=== PATIENT | female | born 1970 | race African-American/Black ===

== ENCOUNTER 2019-08-29 12:35 | Outpatient (CLI) | payer BC, SELFPAY ==
--- NOTE | ~2019-08-29 | MM_ITS ---
EXAMINATION: MM screening martha BI w rg HISTORY: Screening mammogram TECHNIQUE: Craniocaudal and mediolateral oblique 3-D tomosynthesis images were obtained and synthetic 2-D images were generated. CAD analysis was submitted and interpreted. COMPARISON: 08/10/2018, 09/28/2016, 09/02/2015 bilateral digital screening mammogram examinations BREAST PARENCHYMAL COMPOSITION: The breasts are heterogeneously dense, which may obscure small masses . FINDINGS: There is no evidence of suspicious mass, calcification, or architectural distortion to sugg est malignancy in either breast. There has been no suspicious interval change. IMPRESSION: 1. No mammographic evidence of malignancy. 2. Recommend routine screening mammography in one year. BI-RADS Category 1: Negative Reviewed, dictated and finalized at location A.
== END 2019-08-29 12:36 | disposition home or self-care (01) ==
LOC: ANHIMG 12:45
PROVIDERS: PCP Physician Assistant; Visit Provider Physician Assistant
DX: Z12.31 Encounter for screening mammogram for malignant neoplasm of breast (principal)
CPT/HCPCS: 77063; 77067

== ENCOUNTER 2019-11-14 19:24 | Emergency (ER) | payer BC, SELFPAY ==
--- NOTE | ~2019-11-14 | CT_ITS ---
EXAMINATION: CT brain wo con EXAM DATE: 11/14/2019 20:58 INDICATION: Blurred vision. TECHNIQUE: Spiral CT of the head was performed without contrast. Axial, coronal and sagittal images were reviewed. The dose-length product (DLP) for this examination was 681.00 mGy-cm. The exposure w as tailored according to patient size, and iterative reconstruction (ASIR) was used as additional dos e reduction technique. There is no prior study for comparison. FINDINGS: There is no acute intraparenchymal hemorrhage. No evidence of intraparenchymal brain mass lesion. No evidence of acute infarction. There is no mass effect or midline shift. The ventricles are normal in size. There are no extra-axial collections. There are no acute calvarial fractures. T he orbits are unremarkable. Soft tissue is unremarkable. The visualized sinuses and mastoid air hair ls are well aerated. IMPRESSION: 1. Normal head CT examination. Reviewed, dictated and finalized at location A.
[2019-11-14 19:26] VITALS: BP 132/95; PULSE 109; RESP 19; TEMP 36.7; O2SAT 100
[2019-11-14 19:32] LABS: Glucose Point of Care 117 (65-105)
[2019-11-14 19:58] LABS: Add Urine Microscopic? YES; Appearance Urine Cloudy (Clear); Bilirubin Urine Negative (Negative); Blood Urine 2+ (Negative); Color Urine Yellow (Yellow); Glucose Urine UA Negative (Negative); Ketones Urine Trace mg/dL (Negative); Leukocyte Esterase Ur Negative LEU/UL (Negative); Mucus Urine Moderate /lpf; Nitrate Urine Negative (Negative); Protein Urine 1+ mg/dL (Negative); Specific Grav Ur 1.028 (1.001-1.035); Squamous Epithelial Cell Urine Many /hpf (Few)
--- NOTE | 2019-11-14 20:24 | ED.GENADULT ---
HPI - General Adult General Chief complaint: Eye Problems Stated complaint: blurry vision Time Seen by Provider: 11/14/19 20:15 Source: patient History of Present Illness HPI narrative: Patient is a 49 y/o female complaining of moderate blurred vision for about 1 month. She states that she just had her glasses changed recently. She denies any pain or injury to eyes. There is no alleviating or exacerbating factor. She also has some frequent urination and numbness tingling in hands and feet. She denies any headache, weakness in arms or legs. She is able to walk without difficulty. Related Data Allergies Allergy/AdvReac Type Severity Reaction Status Date / Time latex Allergy Mild Itching Verified 11/14/19 20:48 Review of Systems Constitutional: Constitutional: Denies chills, Denies fever(s), Denies headache(s) and Denies weakness Eyes: Eyes: Reports blurry vision ENT: Denies headache(s) and Denies neck pain Cardiovascular: Cardiovascular: Denies chest pain and Denies dyspnea Respiratory: Respiratory: Denies cough and Denies dyspnea Gastrointestinal: Gastrointestinal: Denies abdominal pain, Denies diarrhea, Denies nausea and Denies vomiting Genitourinary: Genitourinary: Denies hematuria and Denies dysuria Musculoskeletal: Musculoskeletal: Denies back pain and Denies neck pain Neurologic: Denies headache(s) and Denies weakness Endocrine: Endocrine: Reports fatigue and Reports polyuria [facility] Family History Family History Mother Family history of malignant neoplasm of esophagus Social History Social History Second hand tobacco smoke exposure: Yes Alcohol intake: current Gender identity (if verbalized by the patient): Female Exam Const: General: no acute distress and well developed Orientation/consciousness: oriented to person, oriented to place, oriented to time and patient oriented x3 HENMT: Head: normocephalic Ears: external ears normal General nose exam: Normal external nose present Eyes: General: appearance normal, both eyes and all related structures Conjunctivae: conjunctivae normal Neck: Neck: normal visual inspection and full ROM Chest: Chest palpation & inspection: normal inspection of the chest and no tenderness Resp: Effort & Inspection: normal respiratory effort Auscultation: clear to auscultation bilaterally Cardio: Rate: regular rate Rhythm: regular rhythm GI: GI Palp: No abdominal tenderness and Yes Soft to palpation Skin: General skin exam: normal color and turgor normal Neuro: General: oriented to person, oriented to place, oriented to time and patient oriented x3 Cranial nerves: Yes CN's II-XII intact bilaterally Cognition (Neuro): normal cognition Speech: normal speech Motor exam (neuro): 5/5 motor strength present throughout Sensory Exam: normal sensation Coordination: [id number] test normal and [id number] test normal Extrem: General: normal to inspection, full ROM and no pedal edema Psych: Appearance: grossly normal Mental Status: mental status grossly normal Affect: normal affect Course Vital Signs Vital signs: Vital Signs Temperature 36.7 C 11/14/19 19:26 Pulse Rate 109 H 11/14/19 19:26 Respiratory Rate 11/14/19 19:26 Blood Pressure 132/95 H 11/14/19 19:26 Pulse Oximetry 100 11/14/19 19:26 Temperature 36.7 C 11/14/19 19:26 Pulse Rate 109 H 11/14/19 19:26 Respiratory Rate 11/14/19 19:26 Blood Pressure 132/95 H 11/14/19 19:26 Pulse Oximetry 100 11/14/19 19:26 Medical Decision Making Vital Signs Vital Signs: Vital Signs Temperature 36.7 C 11/14/19 19:26 Pulse Rate 109 H 11/14/19 19:26 Respiratory Rate 11/14/19 19:26 Blood Pressure 132/95 H 11/14/19 19:26 Pulse Oximetry 100 11/14/19 19:26 Temperature 36.7 C 11/14/19 19:26 Pulse Rate 109 H 11/14/19 19:26 Respiratory Rate
[2019-11-14 20:42] LABS: Basophils Absolute Auto 0.1 K/mm3 (0.0-0.1); Basophils Percent Auto 1.2 % (0.2-1.2); Eosinophils Absolute Auto 0.3 K/mm3 (0-0.3); Eosinophils Percent Auto 5.5 % (0-4.4); Hematocrit 45.1 % (37.0-47.0); Hemoglobin 15.3 g/dL (12.0-15.0); Immature Granulocyte Absolute 0.01 K/mm3 (0.00-0.031); Immature Granulocyte Percent A 0.2 % (0-0.5); Lymphocytes Absolute Auto 2.98 K/mm3 (0.9-3.2); Lymphocytes Percent Auto 50.9 % (18.3-44.2); Mean Corpuscular HGB Conc 33.9 g/dl (32-36); Mean Corpuscular Volume 97.4 fl (80-100); Mean Platelet Volume 9.4 fl (7.4-10.4); Monocytes Absolute Auto 0.4 K/mm3 (0.1-0.6); Monocytes Percent Auto 7.2 % (2.6-8.5); Neutrophils Absolute Auto 2.1 K/mm3 (1.3-6.7); Platelet Count Result 283 k/mm3 (150-375); Red Blood Count 4.63 M/mm3 (4.2-5.4); Red Cell Distribution Width 12.7 % (11.5-14.5); White Blood Count 5.9 K/mm3 (4.5-10.0)
[2019-11-14 20:55] LABS: Anion Gap 11.6 mmol/L (7-16); Blood Urea Nitrogen 15 mg/dL (7-17); Calcium 9.9 mg/dL (8.4-10.2); Carbon Dioxide 27 mmol/L (22-30); Chloride 104 mmol/L (98-107); Estimated CRCL calculation 71 ml/min; Estimated Glomerular Filt Rate > 60; Glucose 116 mg/dL (65-105); Potassium 3.6 mmol/L (3.4-5.0); Sodium 139 mmol/L (137-145)
[2019-11-14 21:55] VITALS: BP 143/100; PULSE 76; RESP 20; O2SAT 100
== END 2019-11-14 22:10 | disposition home or self-care (01) ==
PROVIDERS: Emergency Medicine; Emergency Provider Emergency Medicine; PCP Physician Assistant
DX: H53.8 Other visual disturbances (principal)
CPT/HCPCS: 36415; 70450; 80048; 81001; 82948; 84443; 85025; 99284; A9270

== ENCOUNTER 2019-12-06 10:49 | Outpatient (CLI) | payer BC, SELFPAY ==
[2019-12-06 12:18] LABS: Free T4 Free Thyroxine 1.12 ng/mL (0.78-2.19)
[2019-12-09 06:48] LABS: Triiodothyronine T3 Free 2.6 pg/mL (2.3-4.2)
== END 2019-12-06 10:50 | disposition home or self-care (01) ==
LOC: ANHLAB 10:51
PROVIDERS: PCP Physician Assistant; Visit Provider Internal Medicine Endocrinology, Diabetes & Metabolism
DX: E03.9 Hypothyroidism, unspecified (principal); E04.9 Nontoxic goiter, unspecified
CPT/HCPCS: 36415; 84439; 84443; 84481

== ENCOUNTER 2020-01-03 10:00 | Outpatient (RCR) | payer OTHER, BC, SELFPAY ==
--- NOTE | 2019-12-14 10:24 | PCPTNOTE ---
Patient did not show up for scheduled appointment this date. Called pt due to no show. She forgot about the appointment. She has her re-eval next week.
--- NOTE | 2019-12-20 12:28 | PTOPEVAL ---
Thank you for referring Cherelle bAreu to [facility] [place].? The patient is scheduled to be seen for therapy? 2 x/week for 4 weeks. Please review, sign, date and return this plan of care CARRILLO. I agree with and certify that the following plan of care is medically necessary. Referring Physician Date Admitting Provider: Attending Provider: Dr. Max Wallace MD Physical Therapy Progress Note *PT Outpatient Evaluation Start: 11/21/19 11:58 Freq: Status: Active Protocol: Document 12/20/19 10:11 EDUARDO (Rec: 12/20/19 11:07 EDUARDO [id number]) Therapy Assessment Status Assessment Status Assessment Status Re-evaluation Outpatient Past Medical History Past Medical History No Past Medical/Surgical History Patient/Family Denies Significant Past Medical/ Surgical History Evaluation Information Problem Diagnosis L ankle sprain Onset October 02 2019 Subjective Information She is wearing the ankle brace Query Text:As Reported By Patient/ when out of bed. States the Family MRI indicate torn ligaments of ankle. She has a f/u with on 12/27/19. Denies numbness and tingling of left foot. She has foot pain with wearing shoes, but is able to don/dof shoes and socks. She tried to power walk, but had increased pain. She tried to preform HEP daily. She is able to perform household mobility without difficulty. She is using a cart at [facility] . Pain Assessment Timing of Pain Assessment Timing of Pain Assessment Re-assessment Pain Scale Pain Scale Used Numeric (1 - 10) Self Report Pain Assessment Left Ankle(s) Reported Pain Level 2 Pain Description Throbbing Pain Frequency Intermittent Lowest Pain Intensity 0 Greatest Pain Intensity 5 Pain Score Pain Score 2: Self Report Lower Extremity Range of Motion Ankle/Foot Range of Motion Right Ankle Dorsiflextion With Knee Extension 0 Range of Motion - Active Ankle Plantarflexion Range of Motion - 60 Active Query Text: Ankle Eversion Range of Motion - Active 20 Ankle Inversion Range of Motion - Active 30 Left Ankle Dorsiflextion With Knee Extension -5 Range of Motion - Active Ankle Plantarflexion Range of Motion - 50 Active Query Text:
--- NOTE | 2019-12-26 11:39 | PCPTNOTE ---
Patient did not show up for scheduled appointment this date.
--- NOTE | 2020-01-08 11:03 | PCPTNOTE ---
Patient did not show up for scheduled appointment this date. Called pt due to no show for therapy. She states her work compensation insurance indicated therapy services are not indicated. Will DC skilled therapy services at this time.
--- NOTE | 2020-01-08 11:08 | PCPTNOTE ---
Admitting Provider: Attending Provider: PHYSICIAN NOT ON STAFF Patient:Cherelle Abreu Date of :1970 Discharge Note Patient has not returned for any further treatments since 01/03/2020, therefore she will be discharged at this time. Patient?s initial visit was on 11/21/2019 12:30 and she had a total of 10 visits. The goals have been partially met at this time. Thank you for referring this patient to [facility]. Please review, sign, date and return this discharge summary CARRILLO. I have been updated about the patient's current status and I agree with discharge from the above service at this time. Referring Physician Date
== END 2020-01-08 13:12 | disposition home or self-care (01) ==
LOC: ANHPT 10:00
PROVIDERS: PCP Physician Assistant
DX: M25.572 Pain in left ankle and joints of left foot (principal)
CPT/HCPCS: 97035; 97110; 97112; 97113; 97140; 97161; 97530

== ENCOUNTER 2020-03-25 12:08 | Emergency (ER) | payer BC, SELFPAY ==
--- NOTE | ~2020-03-25 | CT_ITS ---
EXAMINATION: CT abdomen pelvis w con DATE: 03/25/2020 14:23 INDICATION: Abdominal pain and distention. TECHNIQUE: Computed tomography (CT) of the abdomen and pelvis was performed with 100 mL Omnipaque 350 intravenous contrast. Automated exposure control and iterative reconstruction technique were employe d. The dose-length product was 918.08 mGy-cm. COMPARISON: CT abdomen and pelvis 10/14/2016 FINDINGS: The visualized portions of the lung bases demonstrate mild atelectasis. No pleural effusion . The heart size is normal. No pericardial effusion. There is mild intrahepatic biliary duct dilatati on. The common duct is dilated to 10 mm. The gallbladder, spleen, pancreas, adrenal glands, and left kidney are normal. There is a 6 mm cyst in right kidney. There are no dilated loops of bowel. The lee ann endix is normal. There are no pathologically enlarged lymph nodes. There is no free intraperitoneal f luid. There is mild lumbar spondylosis. IMPRESSION: 1. New mild intrahepatic and extrahepatic biliary duct dilatation. The clinical significance of this finding is uncertain given the normal liver function tests. Reviewed, dictated and finalized at location A. MAKER IMPRESSION: 1. New mild intrahepatic and extrahepatic biliary duct dilatation. The clinical significance of this finding is uncertain given the normal liver function test s.
--- NOTE | 2020-03-25 12:12 | ED.ABDPAIN ---
HPI - Abdominal Pain General Chief Complaint: Abdominal Pain Stated Complaint: Swelling of ABD Time Seen by Provider: 03/25/20 12:12 Source: patient Mode of arrival: ambulatory Limitations: no limitations History of Present Illness HPI narrative: The patient is a 49 yo with a history of Graves disease s/p thyroid ablation, who presents for evaluation of abdominal bloating with associated nausea and vomiting. Pt with two episodes of vomiting yesterday. She also reports some constipation, with intermittent blood present in her stool. Patient reports bright red blood. She is now having difficult passing gas. She has had subjective fever and chills. She does have a history of hysterectomy. Related Data Allergies Allergy/AdvReac Type Severity Reaction Status Date / Time latex Allergy Mild Itching Verified 03/25/20 12:49 Review of Systems Review of Systems: Narrative: CONSTITUTIONAL: Subjective fever and chills EYES: Denies visual changes, redness, or discharge. ENT: Denies rhinorrhea, congestion, sore throat, or otalgia. CARDIOVASCULAR: Denies chest pain, palpitations, or edema. RESPIRATORY: Denies cough or dyspnea. GASTROINTESTINAL:Denies abdominal pain, reports nausea, vomiting and constipation GENITOURINARY: Denies dysuria or hematuria. SKIN: Denies rash or itching. MUSCULOSKELETAL: Denies back pain, joint pain, or myalgia. NEUROLOGIC: Denies headache, numbness, or weakness. PSYCHIATRIC: She reports history of anxiety PMFSH Past Medical History Medical History Abnormal uterine bleeding Anemia Asthma Bronchitis Graves disease Postablative hypothyroidism Urinary tract infection Surgical History Surgical History S/P radioactive iodine thyroid ablation Family History Family History Mother Family history of malignant neoplasm of esophagus Social History Social History Second hand tobacco smoke exposure: Yes Alcohol intake: current Gender identity (if verbalized by the patient): Female Exam Narrative: Exam Narrative: GENERAL: Awake, alert, conversant HEAD: Normocephalic, atraumatic. EYES: PERRLA and EOMI. ENT: Nares clear, no rhinorrhea or epistaxis. Mucous membranes moist. NECK: Supple. CHEST: No respiratory distress, breathing even and non labored HEART: Regular rate, sinus rhythm ABDOMEN:Pt with bowel sounds in all four quadrants, pt with mild distension, pt reports right sided abd pain in upper and lower quadrant, no rebound, non rigid, no guarding : Rectal: Non thrombosed hemorrhoid, no melena EXTREMITIES: Normal range of motion. No edema. SKIN: Warm, dry, no rash. NEURO:No focal deficits. Alert and oriented x3 Course Vital Signs Vital signs: Vital Signs Temperature 36.3 C L 03/25/20 12:32 Pulse Rate 82 03/25/20 12:32 Respiratory Rate 16 03/25/20 12:32 Blood Pressure 114/60 03/25/20 12:32 Pulse Oximetry 100 03/25/20 12:32 Temperature 36.3 C L 03/25/20 12:32 Pulse Rate 82 03/25/20 12:32 Respiratory Rate 16 03/25/20 12:32 Blood Pressure 114/60 03/25/20 12:32 Pulse Oximetry 100 03/25/20 12:32 MDM - Abdominal Pain MDM Narrative Medical decision making narrative: Patient presented for evaluation of centralized abdominal pain, distention. At the time of assessment, ABCs are intact and vital signs are stable. On exam, patient with possible mild distention without fluid wave. Nonperitoneal exam. Patient did have an external, nonthrombosed hemorrhoid that was a bit tender on exam. Her laboratory results are quite reassuring. No leukocytosis. No transaminitis or hyperbilirubinemia. No elevation in lipase. Patient on exam does not have focal findings of acute cholecystitis. No UTI. CT scan shows mild, intrahepatic and extrahepatic biliary ductal dilatation
[2020-03-25 12:32] VITALS: BP 114/60; PULSE 82; RESP 16; TEMP 36.3; O2SAT 100
[2020-03-25 13:02] LABS: Basophils Absolute Auto 0.1 K/mm3 (0.0-0.1); Basophils Percent Auto 1.1 % (0.2-1.2); Eosinophils Absolute Auto 0.3 K/mm3 (0-0.3); Eosinophils Percent Auto 4.6 % (0-4.4); Hematocrit 37.6 % (37.0-47.0); Hemoglobin 12.8 g/dL (12.0-15.0); Immature Granulocyte Absolute 0.02 K/mm3 (0.00-0.031); Immature Granulocyte Percent A 0.3 % (0-0.5); Lymphocytes Absolute Auto 2.45 K/mm3 (0.9-3.2); Lymphocytes Percent Auto 38.6 % (18.3-44.2); Mean Corpuscular Hemoglobin 34.2 pg (26-34); Mean Corpuscular Volume 100.5 fl (80-100); Mean Platelet Volume 10.1 fl (7.4-10.4); Monocytes Absolute Auto 0.6 K/mm3 (0.1-0.6); Monocytes Percent Auto 8.7 % (2.6-8.5); Neutrophils Percent Auto 46.7 % (45.5-73.1); Platelet Count Result 201 k/mm3 (150-375); Red Blood Count 3.74 M/mm3 (4.2-5.4); Red Cell Distribution Width 12.6 % (11.5-14.5); White Blood Count 6.4 K/mm3 (4.5-10.0)
[2020-03-25 13:04] LABS: Add Urine Microscopic? YES; Appearance Urine Clear (Clear); Bacteria Urine Trace /hpf; Bilirubin Urine Negative (Negative); Blood Urine Negative (Negative); Color Urine Yellow (Yellow); Glucose Urine UA Negative (Negative); Ketones Urine Negative (Negative); Leukocyte Esterase Ur Negative LEU/UL (Negative); Mucus Urine Rare /lpf; Nitrate Urine Negative (Negative); Protein Urine Negative (Negative); RBC Urine 0-2 /hpf (0-2); Specific Grav Ur 1.029 (1.001-1.035); Squamous Epithelial Cell Urine Moderate /hpf (Few); Urobilinogen Urine Negative mg/dL (<2.0); WBC Urine 0-3 /hpf
[2020-03-25] MEDS: SODIUM CHLORIDE 0.9% IV 1,000 ML 999 ML IV CONT (13:20)
[2020-03-25] MEDS: MORPHINE SULFATE (*CRX) 4 MG/ML INJ IV PUSH (13:20)
[2020-03-25] MEDS: METOCLOPRAMIDE HCL INJ 10 MG/2 ML VIAL IV PUSH (13:20)
[2020-03-25 13:56] LABS: Alanine Aminotransferase 16 U/L (4-35); Alkaline Phosphatase 76 U/L (38-126); Anion Gap 4 mmol/L (8-16); Aspartate Amino Transferase 24 U/L (14-36); Bilirubin,Total 0.2 mg/dL (0.2-1.3); Blood Urea Nitrogen 22 mg/dL (7-17); Calcium 8.6 mg/dL (8.4-10.2); Carbon Dioxide 25 mmol/L (22-30); Chloride 107 mmol/L (98-107); Estimated CRCL calculation 91 ml/min; Estimated Glomerular Filt Rate > 60; Glucose 94 mg/dL (65-105); Lipase 99 U/L (23-300); Potassium 3.8 mmol/L (3.4-5.0); Sodium 136 mmol/L (137-145)
[2020-03-25 16:10] VITALS: BP 126/74; PULSE 74; RESP 16; O2SAT 100
== END 2020-03-25 16:12 | disposition home or self-care (01) ==
PROVIDERS: Emergency Provider Emergency Medicine; PCP Emergency Medicine
DX: R10.9 Unspecified abdominal pain (principal); K64.4 Residual hemorrhoidal skin tags; K83.9 Disease of biliary tract, unspecified; J45.909 Unspecified asthma, uncomplicated; E05.00 Thyrotoxicosis with diffuse goiter without thyrotoxic crisis or storm; E03.9 Hypothyroidism, unspecified
CPT/HCPCS: 36415; 74177; 80053; 81001; 83690; 85025; 96361; 96374; 96375; 99284; J2270; J2765; J7030; Q9967

== ENCOUNTER 2020-06-13 08:40 | Emergency (ER) | payer BC, SELFPAY ==
--- NOTE | ~2020-06-13 | XR_ITS ---
EXAMINATION: XR chest 1V portable DATE: 06/13/2020 09:31 INDICATION: Shortness of breath. TECHNIQUE: A single frontal view of the chest was obtained. COMPARISON: Chest 2 views 06/01/2016, CT abdomen and pelvis 03/25/2020 FINDINGS: The chest demonstrates clear lungs without pneumonia, pleural effusion, or pneumothorax. Th e heart size is normal. IMPRESSION: 1. No acute cardiopulmonary disease. Reviewed, dictated and finalized at location A. K SERVICE TECHNICIAN
[2020-06-13 08:51] VITALS: BP 138/87; PULSE 86; RESP 20; TEMP 36.8; O2SAT 100
[2020-06-13 08:55] VITALS: O2SAT 99
--- NOTE | 2020-06-13 08:59 | PC.NURSE ---
upon getting pt from triage area, pt got up from w/c, refused to sit back down in w/c. Walked to room stopping x2 to lean against counter. Offered w/c and or assistance with arm, pt refused both times.
--- NOTE | 2020-06-13 09:01 | ED.SOB ---
HPI - SOB/Dyspnea General Chief Complaint: Shortness of Breath/Dyspnea Stated Complaint: i can't breathe Time Seen by Provider: 06/13/20 08:59 History of Present Illness HPI Narrative: 50 yo female presents to the ED for SOB. She reports that she has been SOB since she woke up this morning. This is associated with sharp chest pain. She says that she has had this in the past and was diagnosed with bronchitis. She tried using an albuterol inhaler, but it was empty. Related Data Allergies Allergy/AdvReac Type Severity Reaction Status Date / Time latex Allergy Mild Itching Verified 06/13/20 08:57 Review of Systems Review of Systems: All systems reviewed & are unremarkable except as noted in HPI and below Constitutional: Constitutional: Denies chills and Denies fever(s) Eyes: Eyes: Reports no additional eye complaints ENT: Reports system reviewed and no additional complaints, except as documented Cardiovascular: Cardiovascular: Reports chest pain Respiratory: Respiratory: Reports dyspnea Gastrointestinal: Gastrointestinal: Denies nausea and Denies vomiting Genitourinary: Genitourinary: Reports no additional female genitourinary complaints Integumentary/Breasts: Skin/Breast: Reports system reviewed and no additional complaints, except as docu Neurologic: Denies dizziness and Denies weakness PMFSH Past Medical History Medical History Abnormal uterine bleeding Anemia Asthma Bronchitis Graves disease Postablative hypothyroidism Urinary tract infection Surgical History Surgical History S/P radioactive iodine thyroid ablation Family History Family History Mother Family history of malignant neoplasm of esophagus Social History Social History Second hand tobacco smoke exposure: Yes Alcohol intake: current Gender identity (if verbalized by the patient): Female Exam Const: General: no acute distress and alert Orientation/consciousness: patient oriented x3 HENMT: Head: normal to inspection Eyes: Other: exophthalmos Resp: Effort & Inspection: tachypneic Auscultation: clear to auscultation bilaterally Cardio: Rate: regular rate Rhythm: regular rhythm GI: GI Palp: Yes Soft to palpation and No Tenderness to palpation present (GI) Skin: General skin exam: normal color Neuro: General: patient oriented x3, moves all extremities and CN's II-XI intact bilaterally Speech: normal speech Extrem: General: no edema Course Vital Signs Vital signs: Vital Signs Temperature 36.8 C 06/13/20 08:51 Pulse Rate 86 06/13/20 08:51 Respiratory Rate 20 06/13/20 08:51 Blood Pressure 138/87 06/13/20 08:51 Pulse Oximetry 100 06/13/20 08:51 Temperature 36.8 C 06/13/20 08:51 Pulse Rate 84 06/13/20 09:33 Respiratory Rate 20 06/13/20 09:33 Blood Pressure 135/94 H 06/13/20 09:23 Pulse Oximetry 78 L 06/13/20 09:23 MDM - SOB/Dyspnea MDM Narrative Medical decision making narrative: Feeling better after nebulizer treatment. Labs and imaging reassuring. Differential Diagnosis Differential diagnosis: Likely acute exacerbation of chronic obstructive airways disease, congestive heart failure, community acquired pneumonia and asthma with exacerbation Medical Records Attestation: I reviewed the patient's medical records. Lab Data Attestation: I reviewed the patient's lab results. Result diagrams: 06/13/20 09:07 06/13/20 09:07 Labs: Lab Results 06/13/20 06/13/20 Range/Units 09:07 09:07 WBC 7.9 (4.5-10.0) K/mm3 RBC 4.18 L (4.2-5.4) M/mm3 Hgb 14.1 (12.0-15.0) g/dL Hct 42.3 (37.0-47.0) % MCV 101.2 H (80-100) fl MCH 33.7 (26-34) pg MCHC 33.3 (32-36) g/dl RDW 12.7 (11.5-14.5) % Plt Count 197
[2020-06-13 09:12] LABS: Basophils Percent Auto 0.5 % (0.2-1.2); Eosinophils Absolute Auto 0.2 K/mm3 (0-0.3); Eosinophils Percent Auto 2.1 % (0-4.4); Hematocrit 42.3 % (37.0-47.0); Hemoglobin 14.1 g/dL (12.0-15.0); Immature Granulocyte Absolute 0.02 K/mm3 (0.00-0.031); Immature Granulocyte Percent A 0.3 % (0-0.5); Lymphocytes Absolute Auto 2.25 K/mm3 (0.9-3.2); Lymphocytes Percent Auto 28.4 % (18.3-44.2); Mean Corpuscular HGB Conc 33.3 g/dl (32-36); Mean Corpuscular Hemoglobin 33.7 pg (26-34); Mean Corpuscular Volume 101.2 fl (80-100); Monocytes Absolute Auto 0.7 K/mm3 (0.1-0.6); Monocytes Percent Auto 9.4 % (2.6-8.5); Neutrophils Absolute Auto 4.7 K/mm3 (1.3-6.7); Neutrophils Percent Auto 59.3 % (45.5-73.1); Platelet Count Result 197 k/mm3 (150-375); Red Blood Count 4.18 M/mm3 (4.2-5.4); Red Cell Distribution Width 12.7 % (11.5-14.5); White Blood Count 7.9 K/mm3 (4.5-10.0)
[2020-06-13] MEDS: ALBUTEROL SULFATE NEB 2.5 MG/0.5 ML INH 5 MG INHALATION (09:13)
[2020-06-13] MEDS: IPRATROPIUM BR 0.02% INH SOLN 0.5 MG/2.5 ML VIAL INHALATION (09:13)
--- NOTE | 2020-06-13 09:17 | ECG_ITS ---
SINUS RHYTHM WITH SINUS ARRHYTHMIA POSSIBLE LEFT ATRIAL ENLARGEMENT BASELINE ARTIFACT- I, II, III, AVR, AVL, AVF, V1 BORDERLINE ECG Electronically Signed On 06-13-2020 14:01:03 TAPPER BIT by Corky GUNN
--- NOTE | 2020-06-13 09:20 | PC.NURSE ---
pt called out complaining of chest pain. upon arrival to room pt standing on side of bed leaning over. Monitoring equipment removed by patient. Reapplied monitoring equipment. 2nd EKG completed as ordered.
[2020-06-13 09:22] VITALS: PULSE 82; RESP 24
[2020-06-13 09:23] VITALS: BP 135/94; PULSE 73; RESP 18; O2SAT 78
[2020-06-13 09:27] LABS: Alveolar/Arterial O2 Gradient 59.2 mmHg; Base Excess ABG 0.5 mEq/l (+/-2.0); Fractional Inspired Oxygen 28 %; HCO3 ABG 25.1 mEq/l (22.0-26.0); Oxygen Content ABG 15.8 %vol (16.0-22.0); Oxygen Saturation ABG 97.2 % (95.0-100.0); Oxyhemoglobin 79.9 % THb (90.0-100.0); PCO2 ABG 40.4 mmHg (35.0-45.0); PO2 ABG 92.8 mmHg (80.0-100.0); PO2 FiO2 Ratio Arterial Blood 3.31 %; pH ABG 7.412 (7.350-7.450)
[2020-06-13 09:28] LABS: Device NASAL CANNULA; Modified Allen's Test Pass; Site Drawn RIGHT RADIAL
[2020-06-13 09:29] LABS: Anion Gap 7 mmol/L (8-16); Blood Urea Nitrogen 19 mg/dL (7-17); Calcium 8.9 mg/dL (8.4-10.2); Carbon Dioxide 26 mmol/L (22-30); Chloride 104 mmol/L (98-107); Estimated CRCL calculation 86 ml/min; Estimated Glomerular Filt Rate > 60; Glucose 103 mg/dL (65-105); Potassium 4.3 mmol/L (3.4-5.0); Sodium 137 mmol/L (137-145)
[2020-06-13 09:33] VITALS: PULSE 84; RESP 20
--- NOTE | 2020-06-13 09:42 | PC.NURSE ---
pt removed all monitoring. Sitting on side of bed. Verbalized feeling better after breathing treatment.
[2020-06-13 09:43] LABS: NT Pro B Type Natriuretic Pept 92 PG/ML (5-100)
== END 2020-06-13 10:07 | disposition home or self-care (01) ==
PROVIDERS: Emergency Provider Emergency Medicine; PCP Emergency Medicine
DX: R06.00 Dyspnea, unspecified (principal); E89.0 Postprocedural hypothyroidism; Z87.440 Personal history of urinary (tract) infections; Z86.2 Personal history of diseases of the blood and blood-forming organs and certain disorders involving the immune mechanism; R94.31 Abnormal electrocardiogram [ECG] [EKG]; Z77.22 Contact with and (suspected) exposure to environmental tobacco smoke (acute) (chronic)
CPT/HCPCS: 36415; 36600; 71045; 80048; 82805; 83880; 85025; 93005; 94640; 99283

== ENCOUNTER 2020-10-03 09:07 | Outpatient (CLI) | payer BC, SELFPAY ==
--- NOTE | ~2020-10-03 | MM_ITS ---
EXAMINATION: MM screening martha BI w rg HISTORY: Screening mammogram TECHNIQUE: Craniocaudal and mediolateral oblique 3-D tomosynthesis images were obtained and synthetic 2-D images were generated. CAD analysis was submitted and interpreted. COMPARISON: 08/29/2019, 08/10/2018, 09/28/2016 bilateral digital screening mammogram examinations BREAST PARENCHYMAL COMPOSITION: The breasts are heterogeneously dense, which may obscure small masses . FINDINGS: There is no evidence of suspicious mass, calcification, or architectural distortion to sugg est malignancy in either breast. There has been no suspicious interval change. IMPRESSION: 1. No mammographic evidence of malignancy. 2. Recommend routine screening mammography in one year. BI-RADS Category 1: Negative Reviewed, dictated and finalized at location A.
== END 2020-10-03 09:08 | disposition home or self-care (01) ==
LOC: ANHIMG 09:10
PROVIDERS: PCP Emergency Medicine; Visit Provider Emergency Medicine
DX: Z12.31 Encounter for screening mammogram for malignant neoplasm of breast (principal)
CPT/HCPCS: 77063; 77067

== ENCOUNTER 2020-10-03 09:33 | Outpatient (CLI) | payer BC, SELFPAY ==
[2020-10-03 13:36] LABS: Free T4 Free Thyroxine 0.54 ng/mL (0.78-2.19)
[2020-10-03 13:50] LABS: Thyroid Stimulating Hormone 0.112 uIU/mL (0.465-4.680)
[2020-10-07 15:26] LABS: FSH 68.5 mIU/mL (***)
[2020-10-09 21:47] LABS: Estradiol, Ultrasensitive <2 pg/mL
== END 2020-10-03 09:34 | disposition home or self-care (01) ==
LOC: ANHWCLAB 09:35
PROVIDERS: PCP Emergency Medicine; Visit Provider Internal Medicine Endocrinology, Diabetes & Metabolism
DX: E05.90 Thyrotoxicosis, unspecified without thyrotoxic crisis or storm (principal); N95.1 Menopausal and female climacteric states
CPT/HCPCS: 36415; 82670; 83001; 84439; 84443

== ENCOUNTER 2020-12-04 12:05 | Outpatient (CLI) | payer BC, SELFPAY ==
[2020-12-04 20:44] LABS: Free T4 Free Thyroxine 1.65 ng/mL (0.78-2.19)
[2020-12-04 20:58] LABS: Thyroid Stimulating Hormone < 0.015 uIU/mL (0.465-4.680)
== END 2020-12-04 12:06 | disposition home or self-care (01) ==
LOC: ANHWCLAB 12:08
PROVIDERS: PCP Emergency Medicine; Visit Provider Internal Medicine Endocrinology, Diabetes & Metabolism
DX: E89.0 Postprocedural hypothyroidism (principal)
CPT/HCPCS: 36415; 84439; 84443

== ENCOUNTER 2021-02-10 12:24 | Observation (INO) | payer BC, SELFPAY ==
[2021-02-10] VITALS (14 sets, daily range): BP systolic 103–158; BP diastolic 64–99; PULSE 65–84; RESP 14–21; TEMP 36.1–37.2; O2SAT 96–100; BMI 32.3
--- NOTE | ~2021-02-10 | CT_ITS ---
EXAMINATION: CT abdomen pelvis w con DATE: 02/10/2021 19:20 INDICATION: Sudden onset of severe abdominal pain today. Vomiting. TECHNIQUE: Computed tomography (CT) of the abdomen and pelvis was performed with 100 cc Omnipaque 350 intravenous contrast. Automated exposure control and iterative reconstruction technique were employe d. Exam dose: 918.54 mGy-cm total exam DLP. COMPARISON: 03/25/2020 CT abdomen pelvis FINDINGS: The lung bases are clear. Normal heart size. No pericardial or pleural effusion. There is prominence of the intrahepatic and extra hepatic bile ducts, common bile duct measuring up t o approximately 11 mm diameter. Recommend clinical correlation with serum bilirubin level. Consider M ENVIRONMENTAL LABORATORY TECHNICIAN as clinically appropriate. The pancreatic duct measures 3 mm, within upper limits of normal. No hepatic, pancreatic, splenic, and adrenal or suspicious renal space occupying mass lesion is evide nt. A very small right renal cortical cyst and a couple of small left renal cortical cysts are noted. No urinary tract calculus or hydroureteronephrosis. The urinary bladder is evacuated. Status post hysterectomy. Normal caliber of the abdominal aorta. No intraperitoneal or retroperitoneal or pelvic mass lesion or adenopathy or ascites. The appendix is dilated and the appendiceal outline is well-defined, with some surrounding fat infilt ration. Appendicitis with possible rupture and localized phlegmon without zeeshan abscess cavity is sug gested. There are some adjacent nondilated fluid containing small bowel segments with air fluid levels, sugge sting mild adynamic ileus. No bowel obstruction or intraperitoneal free air. Very small fat-containing umbilical hernia. No suspicious osteolytic or osteoblastic lesions. IMPRESSION: Appendicitis, with possible rupture/phlegmon. Emergency surgical consult is recommended. Dr. Francis telephoned the report on 02/10/2021 at [address] ER physician Dr. Velasquez. Reviewed, dictated and finalized at [facility]. Reviewed, dictated and finalized at [facility]. IMPRESSION: Appendicitis, with possible rupture/phlegmon. Emergency surgical c onsult is recommended. Dr. Francis telephoned the report on 02/10/2021 at [address] physician [address] Khanh dsouza.
--- NOTE | 2021-02-10 12:28 | PC.NURSE ---
pt. dilan reed for blood draw. pt. refusing further attempts at this time.
--- NOTE | 2021-02-10 15:46 | ED.ABDPAIN ---
HPI - Abdominal Pain General Chief Complaint: Abdominal Pain <Denisse Omalley PA-C - Last Filed: 02/10/21 20:53> Stated Complaint: ABD PAIN AFTER EATING <GEO Cobb Last Filed: 02/10/21 20:53> Time Seen by Provider: 02/10/21 15:19 <GEO Cobb Last Filed: 02/10/21 20:53> Source: patient <GEO Cobb Last Filed: 02/10/21 20:53> Mode of arrival: ambulatory <GEO Cobb Last Filed: 02/10/21 20:53> Limitations: no limitations <GEO Cobb Last Filed: 02/10/21 20:53> History of Present Illness HPI narrative: This is a 50-year-old female that presents to the emergency department for abdominal pain worsening over the last couple of days. Reports symptoms have been ongoing over the last month. She has been evaluated by GI for this and had colonoscopy and upper endoscopy without acute findings. Reports she gets crampy left-sided abdominal pain. Especially after eating. Also reports intermittent loose stools. She has an appointment to see her non licensed nuclear equipment operator tomorrow. She was at work today and had a another episode of vomiting after eating lunch, which prompted her to be seen today. She has not been able to keep much down. Her non licensed nuclear equipment operator is Dr. Desai. Denies fever, dysuria, or hematochezia. <Denisse Omalley PA-C - Last Filed: 02/10/21 20:53> Related Data Allergies/Adverse Reactions: Allergies Allergy/AdvReac Type Severity Reaction Status Date / Time latex Allergy Mild Itching Verified 06/13/20 08:57 <GEO Cobb Last Filed: 02/10/21 20:53> Review of Systems Review of Systems: CONSTITUTIONAL: Denies fever GASTROINTESTINAL: Reports abdominal pain, nausea, vomiting, and diarrhea. GENITOURINARY: Denies dysuria or hematuria. <GEO Cobb Last Filed: 02/10/21 20:53> All systems reviewed & are unremarkable except as noted in HPI and below <Denisse Omalley PA-C - Last Filed: 02/10/21 20:53> PMFSH Past Medical History Medical History: Medical History Abnormal uterine bleeding Anemia Asthma Bronchitis Graves disease Postablative hypothyroidism Urinary tract infection <Denisse Omalley PA-C - Last Filed: 02/10/21 20:53> Surgical History Surgical History: Surgical History S/P radioactive iodine thyroid ablation <Denisse Omalley PA-C - Last Filed: 02/10/21 20:53> Family History Family History: Family History Mother Family history of malignant neoplasm of esophagus <Denisse Omalley PA-C - Last Filed: 02/10/21 20:53> Social History Social History: Social History Second hand tobacco smoke exposure: Yes Alcohol intake: current Gender identity (if verbalized by the patient): Female <Denisse Omalley PA-C - Last Filed: 02/10/21 20:53> Exam Narrative: GENERAL: Well-appearing, well-nourished, and in no acute distress. HEAD: Normocephalic, atraumatic. EYES: EOMI. CHEST: Clear to auscultation. No respiratory distress. No wheezes rales or rhonchi HEART: Regular rate and rhythm. No murmur heard. Normal peripheral pulses. ABDOMEN: Soft, nondistended, normal active bowel sounds. Tender to palpation throughout the abdomen, without guarding. No CVA tenderness EXTREMITIES: Normal range of motion. No edema. SKIN: Warm, dry, no rash. NEURO: No focal deficits. Alert and oriented x3. PSYCH: Normal mood and affect <GEO Cobb Last Filed: 02/10/21 20:53> Course POLISH COMPOUNDER/PA Physician Supervision For this patient encounter, I reviewed the POLISH COMPOUNDER or PA documentation, treatment plan, and medical decision making; and I had [id number] time with this patient. Patient complains of abdominal pain for 2 weeks. Exam reveals lower abdominal t
[2021-02-10] MEDS: SODIUM CHLORIDE 0.9% IV 1,000 ML 999 ML IV CONT (17:13)
[2021-02-10] MEDS: diphenhydrAMINE HCl INJ 50 MG/ML VIAL 25 MG IV PUSH (17:13)
[2021-02-10] MEDS: METOCLOPRAMIDE HCL INJ 10 MG/2 ML VIAL IV PUSH (17:15)
[2021-02-10] MEDS: FAMOTIDINE 20 MG/2 ML VIAL IV PUSH (17:17)
[2021-02-10 18:42] LABS: Basophils Absolute Auto 0.1 K/mm3 (0.0-0.1); Basophils Percent Auto 0.8 % (0.2-1.2); Eosinophils Absolute Auto 0.3 K/mm3 (0-0.3); Eosinophils Percent Auto 3.8 % (0-4.4); Hematocrit 35.8 % (37.0-47.0); Lymphocytes Absolute Auto 2.62 K/mm3 (0.9-3.2); Mean Corpuscular HGB Conc 33.5 g/dl (32-36); Mean Corpuscular Hemoglobin 33.3 pg (26-34); Mean Corpuscular Volume 99.4 fl (80-100); Mean Platelet Volume 9.7 fl (7.4-10.4); Monocytes Absolute Auto 0.7 K/mm3 (0.1-0.6); Monocytes Percent Auto 10.5 % (2.6-8.5); Neutrophils Absolute Auto 2.9 K/mm3 (1.3-6.7); Neutrophils Percent Auto 44.9 % (45.5-73.1); Platelet Count Result 212 k/mm3 (150-375); Red Cell Distribution Width 12.1 % (11.5-14.5); White Blood Count 6.6 K/mm3 (4.5-10.0)
[2021-02-10 18:57] LABS: Alanine Aminotransferase 15 U/L (4-35); Albumin Level 4.1 g/dL (3.5-5.1); Alkaline Phosphatase 79 U/L (38-126); Anion Gap 9 mmol/L (8-16); Aspartate Amino Transferase 22 U/L (14-36); Bilirubin,Total 0.6 mg/dL (0.2-1.3); Blood Urea Nitrogen 10 mg/dL (7-17); Calcium 9.4 mg/dL (8.4-10.2); Carbon Dioxide 24 mmol/L (22-30); Chloride 107 mmol/L (98-107); Estimated CRCL calculation 88 ml/min; Estimated Glomerular Filt Rate > 60; Glucose 88 mg/dL (65-110); Lipase 58 U/L (23-300); Potassium 3.8 mmol/L (3.4-5.0); Sodium 140 mmol/L (137-145)
[2021-02-10 19:06] LABS: Add Urine Microscopic? YES; Appearance Urine Cloudy (Clear); Bilirubin Urine Negative (Negative); Blood Urine Negative (Negative); Color Urine Amber (Yellow); Glucose Urine UA Negative (Negative); Ketones Urine Trace mg/dL (Negative); Leukocyte Esterase Ur Negative LEU/UL (Negative); Mucus Urine Few /lpf; Nitrate Urine Negative (Negative); Protein Urine 1+ mg/dL (Negative); RBC Urine 21-50 /hpf (0-2); Squamous Epithelial Cell Urine Many /hpf (Few)
[2021-02-10] MEDS: MORPHINE SULFATE (*CRX) 4 MG/ML INJ IV PUSH (20:48)
[2021-02-10] MEDS: ONDANSETRON INJ 4 MG/2 ML VIAL IV PUSH (20:48)
[2021-02-10 20:59] LABS: Lactic Acid Reflex 0.8 mmol/L (0.7-2.1)
--- NOTE | 2021-02-10 23:51 | PC.NURSE ---
This patient, Cherelle Abreu, was admitted to [facility] Surg Room 310-01. Patient/family oriented to hospital policies and general routines including ID bracelet, bed and alarms, visiting hours, pain management, procedures, bathroom and other care routines, personal items, smoking policy, room service/diet, and visiting hours. Information on how to activate the Rapid Response Team has been discussed. Patient/Family are encouraged to report perceived risks to care and to ask questions if they do not understand what they are told or what they should do.
[2021-02-11] VITALS (12 sets, daily range): BP systolic 114–176; BP diastolic 62–112; PULSE 58–95; RESP 12–23; TEMP 36.2–38.2; O2SAT 91–100
[2021-02-11] MEDS: SODIUM CHLORIDE 0.9% IV 1,000 ML 125 ML IV CONT ×3 (00:09→23:01)
--- NOTE | 2021-02-11 07:49 | PM.IMHP ---
H&P: HPI History of Present Illness Date/Time: 02/11/21 07:49 Patient is a pleasant obese 50-year-old black female who presents with complaint of diffuse abdominal pain. Please see the ED note from last night for further history. Patient states that she has had on and off abdominal pain since September or October of this year and actually had an EGD and a colonoscopy in [place] with on mid sometime in September or October. EGD she reports to her knowledge was normal colonoscopy also normal other than hemorrhoids and few benign polyps. (We are working to get the old records). This time yesterday she went into the bathroom at work thinking she might need to pass gas or have a loose stool which she had been having some for a day or 2 and then went to her knees when she tried to stand up. She also notices that whenever she drinks certain amount of water she has a loss of bloating. Because of this she came to the emergency room. Otherwise was slated to go in for an appointment to discuss these things with Dr. Garcia today. Patient had a CT scan last evening which was read as possible appendicitis without perforation I will review the CT scan with our radiologist here at [place] and make further decisions. Also repeat a CBC this morning since last night was completely normal. Chief Complaint: Abdominal plain and bloating Review of Systems Review of Systems: All systems reviewed & are unremarkable except as noted in HPI and below (HPI) Constitutional: Constitutional: Reports as per HPI, Denies chills and Denies fever(s) Eyes: Eyes: Reports no additional eye complaints ENT: Reports Normal hearing present and Denies dizziness Cardiovascular: Cardiovascular: Reports no additional cardiovascular complaints, Denies chest pain and Denies irregular heart rhythm Respiratory: Respiratory: Reports no additional respiratory complaints Gastrointestinal: Gastrointestinal: Reports no additional gastrointestinal complaints, Reports abdominal pain (On off for several months.), Reports bloating (Yesterday prior to presentation), Reports nausea (Improved now but did have this prior to ED visit) and Reports vomiting (Some vomiting yesterday afternoon and evening before admission.) Genitourinary: Genitourinary: Denies hematuria and Reports nocturia ( every 2 to 2-1/2 hours.) Comments: Has had previous UTIs but not recently frequent. had hematuria on her UA in the ED last night. She will help her remember to consider urology referral for for workup of possibly chronic microscopic hematuria. Musculoskeletal: Musculoskeletal: Denies back pain Integumentary/Breasts: Skin/Breast: Reports system reviewed and no additional complaints, except as docu Neurologic: Reports Normal hearing present, Denies Abnormal speech present, Denies confusion and Denies dizziness Psychiatric: Psychiatric: Reports no additional psychiatric complaints and Denies confusion Endocrine: Endocrine: Reports no additional endocrine complaints Comments: History of Graves disease treated in 2016 (patient had radioactive iodine ablation) Patient now on levothyroxine and following with an home health administrator. Hematologic/Lymphatic: Hematologic/Lymphatic: Denies easy bleeding and Denies easy bruising Allergic/Immunologic: Allergic/Immunologic: Reports no additional allergic/immunologic complaints [facility] Past Medical History Medical History (Updated 02/11/21 @ 13:16 by Dale Wellington MD) Abnormal uterine bleeding Anemia Asthma Bronchitis Graves disease Obesity (Unknown) Postablative hypothyroidism (~2015) Urinary tract infection Surgical History Surgical History S/P radioactive iodine thyroid ablation Family History Family History Mother Family history of malignant neoplasm of esophagus Social History Social History (Reviewed 06/13/20 @ 09:44 by Carlos Friedman
[2021-02-11] MEDS: MORPHINE SULFATE (*CRX) 4 MG/ML INJ IV PUSH ×2 (08:06→20:01)
[2021-02-11 08:17] LABS: Basophils Absolute Auto 0.1 K/mm3 (0.0-0.1); Eosinophils Absolute Auto 0.2 K/mm3 (0-0.3); Eosinophils Percent Auto 4.8 % (0-4.4); Hematocrit 37.6 % (37.0-47.0); Hemoglobin 12.6 g/dL (12.0-15.0); Immature Granulocyte Absolute 0.01 K/mm3 (0.00-0.031); Immature Granulocyte Percent A 0.2 % (0-0.5); Lymphocytes Absolute Auto 1.97 K/mm3 (0.9-3.2); Lymphocytes Percent Auto 39.2 % (18.3-44.2); Mean Corpuscular HGB Conc 33.5 g/dl (32-36); Mean Corpuscular Hemoglobin 32.8 pg (26-34); Mean Corpuscular Volume 97.9 fl (80-100); Mean Platelet Volume 9.7 fl (7.4-10.4); Monocytes Absolute Auto 0.7 K/mm3 (0.1-0.6); Monocytes Percent Auto 12.9 % (2.6-8.5); Neutrophils Absolute Auto 2.1 K/mm3 (1.3-6.7); Neutrophils Percent Auto 41.9 % (45.5-73.1); Platelet Count Result 240 k/mm3 (150-375); Red Blood Count 3.84 M/mm3 (4.2-5.4); Red Cell Distribution Width 12.1 % (11.5-14.5)
[2021-02-11 08:29] LABS: Magnesium 1.8 mg/dL (1.6-2.3)
[2021-02-11] MEDS: MORPHINE SULFATE (*CRX) 2 MG/ML INJ IV PUSH (12:17)
--- NOTE | 2021-02-11 12:28 | WPDANESEPPF ---
Anes - Initial Pre Proc Eval Procedure: Operation Date: 02/11/21 14:00 Proposed Procedures p Laparoscopic Appendectomy - Dale Wellington MD Date/Time: 02/11/21 12:28 Surgeon: Dale Wellington MD Pre Op Diagnosis: Acute Appendicitis Patient Data Age: 50 Gender: F Height: 1.68 m Weight: 90.7 kg Last Vital Signs Temp 36.6 C 02/11/21 06:00 Pulse 66 02/11/21 06:00 Resp 18 02/11/21 06:00 BP 114/62 02/11/21 06:00 Pulse Ox 91 02/11/21 06:00 Allergies Allergy/AdvReac Type Severity Reaction Status Date / Time latex Allergy Mild Itching Verified 06/13/20 08:57 Home Medications Medication Instructions Recorded Confirmed Type levothyroxine 112 mcg tablet 112 mcg PO DAILY #90 tablet 12/08/20 02/10/21 Rx Laboratory Tests 02/10/21 02/10/21 02/10/21 18:32 18:32 18:43 WBC 6.6 K/mm3 K/mm3 (4.5-10.0) RBC 3.60 M/mm3 L M/mm3 (4.2-5.4) Hgb 12.0 g/dL g/dL (12.0-15.0) Hct 35.8 % L % (37.0-47.0) MCV 99.4 fl fl (80-100) MCH 33.3 pg pg (26-34) MCHC 33.5 g/dl g/dl (32-36) RDW 12.1 % % (11.5-14.5) Plt Count 212 k/mm3 k/mm3 (150-375) MPV 9.7 fl fl (7.4-10.4) Immature Gran % (Auto) 0.0 % % (0-0.5) Neut % (Auto) 44.9 % L % (45.5-73.1) Lymph % (Auto) 40.0 % % (18.3-44.2) [place] % (Auto) 10.5 % H % (2.6-8.5) Eos % (Auto) 3.8 % % (0-4.4) Baso % (Auto) 0.8 % % (0.2-1.2) Lymph # (Auto) 2.62 K/mm3 K/mm3 (0.9-3.2) [place] # (Auto) 0.7 K/mm3 H K/mm3 (0.1-0.6) Eos # (Auto) 0.3 K/mm3 K/mm3 (0-0.3) Baso # (Auto) 0.1 K/mm3 K/mm3 (0.0-0.1) Abs Immat Gran (auto) 0.00 K/mm3 K/mm3 (0.00-0.031) Absolute Neuts (auto) 2.9 K/mm3 K/mm3 (1.3-6.7) Absolute Nucleated RBC 0.0 K/mm3 K/mm3 (0.0-0.012) Nucleated RBC % 0.0 % % (0.0-0.2) Sodium 140 mmol/L mmol/L (137-145) Potassium 3.8 mmol/L mmol/L (3.4-5.0) Chloride 107 mmol/L mmol/L (98-107) Carbon Dioxide 24 mmol/L mmol/L (22-30) Anion Gap 9 mmol/L mmol/L (8-16) BUN 10 mg/dL D mg/dL (7-17) Creatinine 0.60 mg/dL L mg/dL (0.7-1.0) Estim Creat Clear Calc 88 ml/min ml/min Estimated GFR > 60 (59 - ) Glucose 88 mg/dL mg/dL (65-110) Lactic Acid Calcium 9.4 mg/dL mg/dL (8.4-10.2) Magnesium Total Bilirubin 0.6 mg/dL mg/dL (0.2-1.3) AST 22 U/L U/L (14-36) ALT 15 U/L U/L (4-35) Alkaline Phosphatase 79 U/L U/L (38-126) C-Reactive Protein Total Protein 7.0 g/dL g/dL (6.3-8.2) Albumin 4.1 g/dL g/dL (3.5-5.1) Lipase 58 U/L U/L (23-300) Urine Color Sarah (Yellow) Urine Appearance Cloudy H (Clear) Urine pH 6.0 (5.0-9.0) Ur Specific [place] 1.030 (1.001-1.035) Urine Protein 1+ mg/dL H mg/dL (Negative) Urine Glucose (UA) Negative mg/dL mg/dL (Negative) Urine Ketones Trace mg/dL mg/dL (Negative) Ur Blood (Man) Negative (Negative) Urine Nitrate Negative (Negative) Urine Bilirubin Negative (Negative) Urine Urobilinogen 4.0 mg/dL H mg/dL (<2.0) Leukocyte Esterase Rfl Negative KATIA/UL KATIA/UL (Negative) Urine RBC 21-50 /hpf H /hpf (0-2) Urine WBC 4-6 /hpf H /hpf Ur Squamous Epith Cells Many /hpf H /hpf (Few) Urine Mucus Few /lpf H /lpf 02/10/21 02/11/21 02/11/21 20:30 07:56 07:56 WBC 5.0 K/mm3 K/mm3 (4.5-10.0) RBC 3.84 M/mm3 L M/mm3 (4.2-5.4) Hgb 12.6 g/dL g/dL (12.0-15.0) Hct 37.6 % % (37.0-47.0) MCV 97.9 fl fl (80-100)
--- NOTE | 2021-02-11 12:32 | PC.NURSE ---
On 02/11/21, the student, Karen Pedersen, provided care and completed [facility] documentation on this patient. I have reviewed the student's documentation and agree with the findings.
--- NOTE | 2021-02-11 13:00 | PC.NURSE ---
To OR per caroliner, IV 20G in left hand saline locked. Report given to MITCHELL Matta.
[2021-02-11] MEDS: LACTATED RINGERS 1,000 ML 30 ML IV CONT ×2 (13:16→16:27)
--- NOTE | 2021-02-11 13:22 | WPDHPUPDATE1 ---
History and Physical Update Update Date/Time: 02/11/21 13:22 History and Physical has been reviewed, including an updated exam of the patient. There are NO changes in the patient's condition. Risks, benefits, and alternatives have been discussed and questions answered. Patient agrees to proceed with procedure.
[2021-02-11] MEDS: LIDO 2%/EPINEPHRINE 1:100,000 20 ML VIAL INFILTRATE (13:42)
[2021-02-11] MEDS: fentaNYL CITRATE INJ (*CRX) 100 MCG/2 ML VIAL 25 MCG IV PUSH ×2 (16:41→17:09)
--- NOTE | 2021-02-11 16:43 | W.PM.PROC2 ---
Procedure Note - Detailed Date of Procedure 02/11/21 Pre-op Diagnosis Acute Appendicitis with significantly dilated distal appendix Post-op Diagnosis other (Nearly 15 mm diameter distal appendix with dense fibrosis and scarred against the Rt. pelvic sidewall.) Procedure Performed laparoscopic appendectomy Surgeon Dale Wellington MD [employer] Coach Zacarias MEDRANO. OR Federal Agent Anesthesia general Indications See today's history and physical. By CT patient had an unusual looking appendix with a very dilated distal 2/3 to half of the appendix. It appeared to have no free air around it but significant stranding and inflammation. After thorough discussion the patient elected for surgical intervention. I think it was reveles due to the significant increased diameter of the distal appendix and her recent on and off chronic abdominal pain. Findings Patient's appendix was extending into the pelvis and densely adhered to the right pelvic sidewall probably in the area where the previous right ovary had been removed. Omentum, cecum, distal ileum, gallbladder and liver all appeared normal on their surfaces. Description of Procedure The patient was seen again in her hospital room before OR. The risks, benefits, complications, treatment options, and expected outcomes were discussed with the patient and/or family. The possibilities of reaction to medication, pulmonary aspiration, perforation of viscus, bleeding, recurrent infection, finding a normal appendix, the need for additional procedures, failure to diagnose a condition, and creating a complication requiring transfusion or operation were discussed. There was concurrence with the proposed plan and informed consent was obtained. The site of surgery was properly noted/marked. The patient was taken to Operating Room, and a time out was preformed which identified this as the proper patient, and the procedure verified as laparoscopic appendectomy, possible open. The patient was placed in the supine position and general anesthesia was induced, along with placement of an orogastric tube, SCD hose, and a Bonds catheter. The abdomen was prepped and draped in a sterile fashion. Because the patient had had previous surgeries the Godoy cannula technique was utilized. To do this I made a incision in the umbilical area and carried this down to the midline fascia. Under direct vision the midline fascia was incised and the peritoneum entered under direct vision after placing 2 sutures of 0 Vicryl in the fascia on either side of midline. The 12 mm Godoy cannula was then slid into place into the peritoneum under direct vision. The pneumoperitoneum was then established to steady pressure of 14 mm Hg. A 5 mm laparoscopic port was placed through a transverse suprapubic incision. An additional 5 mm cannula was then placed in the left upper quadrant at the level senior care between the left costal margin and the umbilicus under direct vision. A careful evaluation of the entire abdomen was carried out. The patient was placed in Trendelenburg and rotated to the left laterally position. The small intestines were retracted in the cephalad and left lateral direction away from the pelvis and right lower quadrant. however because of her previous hysterectomy and bilateral salpingo oophorectomy 1 loop of small bowel seemed to be stuck in the pelvis. The patient was found to have an enlarged and inflamed appendix that was extending into the right side of the pelvis. There was no evidence of perforation. In fact the proximal 1/4 to 1/3 of the appendix looked fairly normal, but the distal 2/3 was quite dilated and fibrotic. It was stuck to the surrounding structures including the pelvic sidewall laterally and the mesentery of some small bowel medially and some scar tissue from her previous oophorectomy distally. The appendix was carefully dissected. This was quite tedious and I used blunt and sharp dissection at times using a little bit of cautery to get th
[2021-02-11] MEDS: ACETAMINOPHEN 500 MG TABLET 1000 MG PO (20:04)
[2021-02-11] MEDS: SENNA/DOCUSATE SODIUM TABLET 2 TAB PO (20:39)
[2021-02-11] MEDS: HYDROcodone/acetaminophen (*CRX) 7.5-325 MG TABLET 1 TAB PO (23:18)
[2021-02-12] VITALS: BP 120/66; PULSE 87; RESP 18; TEMP 37.2; O2SAT 96
[2021-02-12] MEDS: MORPHINE SULFATE (*CRX) 2 MG/ML INJ IV PUSH ×2 (02:18→16:47)
[2021-02-12 04:00] VITALS: BP 135/73; PULSE 82; RESP 16; TEMP 37.5; O2SAT 100
[2021-02-12] MEDS: HYDROcodone/acetaminophen (*CRX) 7.5-325 MG TABLET 1 TAB PO ×2 (05:33→14:23)
[2021-02-12] MEDS: MORPHINE SULFATE (*CRX) 4 MG/ML INJ IV PUSH ×2 (06:39→10:52)
[2021-02-12 08:00] VITALS: BP 144/94; PULSE 71; RESP 18; TEMP 36.7; O2SAT 100
[2021-02-12] MEDS: ENOXAPARIN 40 MG/0.4 ML SYRINGE SUB-Q (08:29)
[2021-02-12 10:12] LABS: Hematocrit 36.8 % (37.0-47.0); Hemoglobin 12.5 g/dL (12.0-15.0); Mean Corpuscular Hemoglobin 32.7 pg (26-34); Mean Corpuscular Volume 96.3 fl (80-100); Mean Platelet Volume 9.3 fl (7.4-10.4); Platelet Count Result 236 k/mm3 (150-375); Red Blood Count 3.82 M/mm3 (4.2-5.4); Red Cell Distribution Width 12.2 % (11.5-14.5); White Blood Count 8.8 K/mm3 (4.5-10.0)
[2021-02-12 10:34] LABS: Alanine Aminotransferase 18 U/L (4-35); Albumin Level 4.1 g/dL (3.5-5.1); Alkaline Phosphatase 73 U/L (38-126); Anion Gap 7 mmol/L (8-16); Aspartate Amino Transferase 28 U/L (14-36); Bilirubin,Total 0.5 mg/dL (0.2-1.3); Blood Urea Nitrogen 7 mg/dL (7-17); Calcium 9.1 mg/dL (8.4-10.2); Carbon Dioxide 26 mmol/L (22-30); Chloride 105 mmol/L (98-107); Estimated CRCL calculation 111 ml/min; Estimated Glomerular Filt Rate > 60; Glucose 105 mg/dL (65-110); Magnesium 1.7 mg/dL (1.6-2.3); Potassium 3.6 mmol/L (3.4-5.0); Sodium 138 mmol/L (137-145)
[2021-02-12 11:16] VITALS: BP 150/88; PULSE 78; RESP 18; TEMP 36.8; O2SAT 97
--- NOTE | 2021-02-12 17:42 | PM.PNGS ---
Progress Note: A&P Assessment and Plan (1) Acute appendicitis: Onset Date: ~02/2021 Qualifiers: Acute appendicitis type: with localized peritonitis Appendicitis abscess presence: without abscess Appendicitis gangrene presence: without gangrene Appendicitis perforation presence: without perforation Qualified Code(s): K35.30 - Acute appendicitis with localized peritonitis, without perforation or gangrene Code(s): K35.80 - Unspecified acute appendicitis Status: Acute Assessment and Plan: Because the patient's episodes of pain today I am somewhat reluctant to let her go home. Also she was by herself so she and I decided together to have her stay again we will try her on clear liquids tonight. If she does well and is feeling well in the morning nurses can advance her to full liquids. If she has further pain in the next 2 hours I will repeat a CBC on her if not we will do a CBC in the morning. (This morning's was just fine). If she continues to have severe episodes of pain may consider a repeat CT scan with oral contrast tomorrow to rule out any leak from a inadvertent injury to the small or large bowel or stump of the appendix. Discussed with patient that when she goes home tomorrow if doing well she can begin taking routine ibuprofen for under 600 mg every 6 hours as low level pain relief and then take the [place] if needed. (2) Obesity: Onset Date: Unknown Code(s): E66.9 - Obesity, unspecified Status: Acute Assessment and Plan: Encouraged weight loss (3) Postablative hypothyroidism: Onset Date: ~2015 Code(s): E89.0 - Postprocedural hypothyroidism Status: Acute Assessment and Plan: Will resume p.o. levothyroxine as she resumes diet. (4) GERD without esophagitis: Onset Date: Unknown Code(s): K21.9 - Gastro-esophageal reflux disease without esophagitis Status: Acute Assessment and Plan: Patient told me about this today. She states that her GI physician who did the EGD told her that there was no problems with her esophagus or stomach. She used to take an acid lowering drugs that she does remember the name of from her physician but has not been taking it recently. She does take Tums frequently. Therefore, I suggested that she get [id number] Pepcid and begin taking that and explained this to her. Will try Pepcid 20 mg p.o. q.12 hours here while she awaits further recovery. Time Spent With Patient Time with patient: 15 - 25 minutes Subjective Subjective Date/Time Seen: 02/12/21 17:42 Post Op day: 1 (Pain on and off through the day) Patient reports: still having pain, flatus and no bowel movement Interval history: Patient states she was doing well until she ate some salty food at lunch and then had abdominal cramping pain again mainly above the level of her umbilicus. She tells me now that she does often take Tums for reflux. However, she did have an EGD about 3 months ago during her GI investigation and no comment was made about problems with the esophagus or stomach. Patient's nurse reports that patient feels a little bit better now and is willing to get up and walk. Review of Systems Review of Systems: All systems reviewed & are unremarkable except as noted in HPI and below Constitutional: Constitutional: Reports as per HPI, Denies chills and Denies fever(s) Cardiovascular: Cardiovascular: Denies chest pain and Denies dyspnea Respiratory: Respiratory: Reports no additional respiratory complaints and Denies dyspnea Gastrointestinal: Gastrointestinal: Reports as per HPI, Reports belching, Denies bloating, Denies nausea and Denies vomiting Musculoskeletal: Musculoskeletal: Reports no additional musculoskeletal complaints Neurologic: Denies memory loss Psychiatric: Psychiatric: Denies anxiety and Denies memory loss Exam Const: General: cooperative, comfortable, alert and awake Nutritional Appearance: obese
[2021-02-12 19:44] VITALS: PULSE 70; RESP 18; O2SAT 97
[2021-02-12] MEDS: SENNA/DOCUSATE SODIUM TABLET 2 TAB PO (20:37)
[2021-02-12] MEDS: FAMOTIDINE 20 MG TABLET PO (20:37)
--- NOTE | 2021-02-12 20:40 | PC.NURSE ---
patient adamant on not receiving fluids overnight. Educated her on the importance of hydration she is in agreement and stated she will drink more water but absolutely did not want IV hydration.
[2021-02-12 21:47] VITALS: BP 152/90; PULSE 87; RESP 20; TEMP 36.1; O2SAT 98
[2021-02-13 04:34] VITALS: BP 150/83; PULSE 79; RESP 20; TEMP 36.2; O2SAT 97
[2021-02-13 06:37] LABS: Basophils Percent Auto 0.3 % (0.2-1.2); Eosinophils Absolute Auto 0.2 K/mm3 (0-0.3); Eosinophils Percent Auto 3.3 % (0-4.4); Hematocrit 35.1 % (37.0-47.0); Hemoglobin 11.6 g/dL (12.0-15.0); Immature Granulocyte Absolute 0.01 K/mm3 (0.00-0.031); Immature Granulocyte Percent A 0.1 % (0-0.5); Lymphocytes Absolute Auto 1.27 K/mm3 (0.9-3.2); Lymphocytes Percent Auto 18.9 % (18.3-44.2); Mean Corpuscular Hemoglobin 32.7 pg (26-34); Mean Corpuscular Volume 98.9 fl (80-100); Mean Platelet Volume 10.1 fl (7.4-10.4); Monocytes Absolute Auto 0.8 K/mm3 (0.1-0.6); Monocytes Percent Auto 12.4 % (2.6-8.5); Neutrophils Absolute Auto 4.4 K/mm3 (1.3-6.7); Platelet Count Result 234 k/mm3 (150-375); Red Blood Count 3.55 M/mm3 (4.2-5.4); Red Cell Distribution Width 12.2 % (11.5-14.5); White Blood Count 6.7 K/mm3 (4.5-10.0)
[2021-02-13] MEDS: FAMOTIDINE 20 MG TABLET PO (09:03)
--- NOTE | 2021-02-13 12:01 | PM.DS ---
DS: Admitting Diagnosis Discharge Date 02/13/2021 Admitting Diagnosis acute appendicitis DS: Discharge Diagnosis Discharge Diagnosis (1) Acute appendicitis: Onset Date: ~02/2021 Qualifiers: Acute appendicitis type: with localized peritonitis Appendicitis abscess presence: without abscess Appendicitis gangrene presence: without gangrene Appendicitis perforation presence: without perforation Qualified Code(s): K35.30 - Acute appendicitis with localized peritonitis, without perforation or gangrene Code(s): K35.80 - Unspecified acute appendicitis Status: Acute Assessment and Plan: status post lap appendectomy, continue routine postoperative care, home with p.o. analgesia and Colace, follow-up 2 weeks DS: Summary Hospital Course Reason for hospitalization: acute appendicitis Hospital Course: The patient is a 50-year-old female that presented complaining of severe right lower quadrant abdominal pain. Workup, including imaging, was significant for acute appendicitis. Given this the patient was admitted to the surgical service and started on IV antibiotics. Upon evaluation, decision was made to proceed with appendectomy. The patient was taken to the operating room on 02/11 and laparoscopic appendectomy was performed, please see full operative report for details of that procedure. Postoperatively, the patient did well and was transferred back to the floor. On postoperative day 1. , the patient had a lot of pain and the decision was made to continue her observation in the hospital. Throughout the day, she was able to have her diet advanced. She was able to get out of bed and ambulate without issue. On postoperative day 2. , the patient felt much better and her pain was well controlled with p.o. analgesia. She will now be discharged home p.o. analgesia and Colace. She will follow up with Dr. Wellington in 2 weeks. Status at Discharge Functional status at discharge: independent ambulation Overall status at discharge: patient is progressing back to baseline Time Spent with Patient Time attestation: Total time spent providing and/or coordinating discharge services: Time spent: Less than 30 minutes Exam Const: General: cooperative, comfortable and no acute distress Resp: Effort & Inspection: normal respiratory effort Auscultation: clear to auscultation bilaterally Cardio: Rate: regular rate Rhythm: regular rhythm GI: Inspection: normal to inspection, distended and incision GI Palp: Yes Soft to palpation, Yes Tenderness to palpation present (GI), No Guarding due to palpation present (GI) and No Rigid due to palpation DS: Data Data Completed and Pending Completed studies during hospitalization: Pending at discharge 02/11/21 14:18 Surgical [PTH] Routine Labs on day of discharge: Labs from last 24 hours 02/13/21 05:41 WBC 6.7 RBC 3.55 L Hgb 11.6 L Hct 35.1 L MCV 98.9 MCH 32.7 MCHC 33.0 RDW 12.2 Plt Count 234 MPV 10.1 Immature Gran % (Auto) 0.1 Neut % (Auto) 65.0 Lymph % (Auto) 18.9 [place] % (Auto) 12.4 H Eos % (Auto) 3.3 Baso % (Auto) 0.3 Lymph # (Auto) 1.27 [place] # (Auto) 0.8 H Eos # (Auto) 0.2 Baso # (Auto) 0.0 Abs Immat Gran (auto) 0.01 Absolute Neuts (auto) 4.4 Absolute Nucleated RBC 0.0 Nucleated RBC % 0.0 Discharge Plan Discharge Attending physician on discharge: Dale Wellington Consulting providers: Denisse Omalley Discharging Clinician: Ruthie Eason Anticipated Discharge Date/Time: 02/13/21 11:58 Patient Disposition: Home, Self-Care Activity: other - see discharge instructions Diet: other - see discharge instructions Wound Care Instructions: other - see discharge instructions Discharge Instructions: DISCHARGE INSTRUCTION SHEET FOR HERNIA, GALLBLADDER AND APPENDIX SURGERIES DR. EASON PATIENT TO TAKE HOME 1. May shower in 24 hours, no soaking in bath x 2weeks. 2. Call office for: Wound in
== END 2021-02-13 13:20 | disposition home or self-care (01) ==
LOC: ANHED 20:50 → ANH3MEDSUR 02-11 10:43
PROVIDERS: Emergency Medicine; Physician Assistant; Admitting Provider Surgery; Emergency Provider Emergency Medicine; PCP Emergency Medicine; Visit Provider Surgery
PROC: 0DTJ4ZZ Resection of Appendix, Percutaneous Endoscopic Approach (ICD-10-PCS; CPT 44970; principal; 2021-02-11 13:30)
DX: K35.30 Acute appendicitis with localized peritonitis, without perforation or gangrene (principal); K57.90 Diverticulosis of intestine, part unspecified, without perforation or abscess without bleeding; K21.9 Gastro-esophageal reflux disease without esophagitis; E89.0 Postprocedural hypothyroidism; E66.9 Obesity, unspecified; Z68.32 Body mass index [BMI] 32.0-32.9, adult; Z87.891 Personal history of nicotine dependence
CPT/HCPCS: 44970; 36415; 74177; 80053; 81001; 81025; 83605; 83690; 83735; 85025; 85027; 86140; 88304; 96361; 96365; 96366; 96367; 96375; 96376; 99285; A9270; G0378; J0131; J1100; J1170; J1200; J1650; J2250; J2270; J2405; J2543; J2704; J2710; J2765; J3010; J7030; J7120; Q9967

== ENCOUNTER 2021-03-10 11:21 | Outpatient (CLI) | payer BC, SELFPAY ==
[2021-03-10 13:51] LABS: Free T4 Free Thyroxine 1.55 ng/mL (0.78-2.19)
== END 2021-03-10 11:22 | disposition home or self-care (01) ==
LOC: ANHWCLAB 11:23
PROVIDERS: PCP Emergency Medicine; Visit Provider Internal Medicine Endocrinology, Diabetes & Metabolism
DX: E89.0 Postprocedural hypothyroidism (principal)
CPT/HCPCS: 36415; 84439; 84443

== ENCOUNTER 2022-02-22 07:58 | Outpatient (CLI) | payer OTHER, SELFPAY ==
[2022-02-22 13:14] LABS: Free T4 Free Thyroxine 0.78 ng/mL (0.78-2.19)
== END 2022-02-22 07:59 | disposition home or self-care (01) ==
LOC: ANHWCLAB 08:00
PROVIDERS: PCP Emergency Medicine; Visit Provider Internal Medicine Endocrinology, Diabetes & Metabolism
DX: E89.0 Postprocedural hypothyroidism (principal)
CPT/HCPCS: 36415; 84439; 84443

== ENCOUNTER 2022-08-30 11:24 | Outpatient (CLI) | payer OTHER, SELFPAY ==
[2022-08-30 13:24] LABS: Free T4 Free Thyroxine 1.24 ng/mL (0.78-2.19)
== END 2022-08-30 11:25 | disposition home or self-care (01) ==
LOC: ANHWCLAB 11:27
PROVIDERS: PCP Emergency Medicine; Visit Provider Internal Medicine Endocrinology, Diabetes & Metabolism
DX: E89.0 Postprocedural hypothyroidism (principal)
CPT/HCPCS: 36415; 84439; 84443

== ENCOUNTER 2024-06-20 08:10 | Outpatient (CLI) | payer OTHER, SELFPAY ==
--- NOTE | ~2024-06-20 | MM_ITS ---
EXAMINATION: MM screening martha BI w rg HISTORY: Screening mammogram TECHNIQUE: Craniocaudal and mediolateral oblique 3-D tomosynthesis images were obtained and synthetic 2-D images were generated. CAD analysis was submitted and interpreted. COMPARISON: 10/03/2020, 08/29/2019, 08/10/2018, 09/28/2016 BREAST PARENCHYMAL COMPOSITION:Dense: The breasts are heterogeneously dense, which may obscure small masses. FINDINGS: No suspicious mass, calcification, or architectural distortion are identified in either wiley ast to suggest malignancy. There has been no suspicious interval change. IMPRESSION: No mammographic evidence of malignancy. Recommend routine screening mammography in one year. BI-RADS Category 1: Negative Reviewed, dictated and finalized at location .
--- OUTSIDE RECORDS SUMMARY | 2024-06-20 08:33 | XMS_ITS | Clinical Summary ---
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 Gender Identity Not on file Sexual Orientation Not on file Plan of Treatment Health Maintenance Due Date Last Done Comments Hepatitis C Virus (HCV) Screening 1972 TdaP Immunization 1972 Hepatitis B Immunization (1 of 3 - 19+ 3-dose series) 1991 Pap Smear 1993 Cervical Cancer Screening (CCS) 2002 HPV/Cotest 2002 Colonoscopy 2017 Colorectal Cancer Screening 2017 Cologuard 2022 Immunochemical Fecal Occult Blood 2022 Mammogram 2022 Pneumococcal Immunization (5 0+ years) (1 of 1 - PCV) 2022 Zoster Immunization (1 of 2) 2022 Influenza Immunization (#1) 2023 SARS-COV-2 Immunization ( - season) 2023 Respiratory Syncytial Virus (RSV) Immunization (Adult) (1 - 1-dose 75+ series) 2047 Meningococcal Immunization (ACWY) Aged Out No longer eligible based on patient's age to complete this topic Pneumococcal Immunization Combined Aged Out No longer eligible based on patient's age to complete this topic Rotavirus Immunization Aged Out No lo nger eligible based on patient's age to complete this topic
--- OUTSIDE RECORDS SUMMARY | 2024-06-20 08:33 | XMS_ITS | Clinical Summary ---
Author Organization [facility] Address [address] [place] [address] Care Team Providers Care Supervisor Riprap Placing Name Role Phone Boby Odonnell MD Primary Care Provider [phone] Social History Tobacco Use Types Packs/Day Years Used Date Smoking Tobacco: Never Assessed Comments Unknown Sex and Gender Information Value Date Recorded Sex Assigned at Not on file Legal Sex Female 4:14 PM CDT Gender Identity Not on file Sexual Orientation Not on file Plan of Treatment Health Maintenance Due Date Last Done Comments Cervical Cancer Screening Pa p Smear (Age 30 to 64) Every 3 Years 1972 Colorectal Cancer Screening Colonoscopy (10 Years) 1972 Annual Physical 1975 Hepatitis C 1990 DTaP, Tdap and Td Vaccines ( 1 - Tdap) 1991 Hepatitis B Vaccines (1 of 3 - 19+ 3-dose series) 1991 Cervical Cancer Screening Pa p with HPV Testing (Age 30 to 64) Every 5 Years 2002 Cervical Cancer Screening with HPV 2002 Mammogram Screening 2012 Zoster Vaccines (1 of 2) 2022 COVID-19 Vaccine ( - 2023-2 5 season) 2023 Influenza Adult (#1) 2024 Meningococcal B Vaccine Aged Out No l onger eligible based on patient's age to complete this topic Meningococcal Vaccine Aged Out No shannan hari eligible based on patient's age to complete this topic Pneumococcal Vaccine: Pediat rics (0 to 5 Years) and At-Risk Patients (6 to 64 Years) Aged Out No longer eligible b ased on patient's age to complete this topic RSV Immunizations Under 20 Months Aged Out No longer eligible based on patient's age to complete this topic Care Teams Supervisor Riprap Placing Relationship Specialty Start Date End Date Boby Odonnell MD [address] [address] PCP - General 02/27/13
--- OUTSIDE RECORDS SUMMARY | 2024-06-20 08:33 | XMS_ITS | Patient Health Summary ---
Author Organization [facility] [employer] Address [address] [place] [address] Care Team Providers Care Cashier Parking Lot Name Role Phone Boby Odonnell MD Primary Care Provider Unavailabl e Note from [facility],non-owned Affiliates and Associated Physician Practices is amultiple site organization consisting of ambulatory clinics and hospital sitesin [place], [place], [place] and [place]. This disclosure is being madepursuant to the Care Everywhere program and may not contain all information available regarding this patient. Last updated 17.[facility] Allergies No known active allergies Medications * Be aware that medications may not be up to date on this document. Alwaysverify current medications with the patient. * levothyroxine (Synthroid) 125 MCG tablet(Started 02/26/2022) Take 1 (one) tablet by mouth daily before breakfast Active Problems Problem Noted Date Diagnosed Date Graves disease 02/26/2022 Syncope and collapse 02/25/2022 Bradycardia 02/25/2022 Hypothyroidism, unspecified type 02/25/2022 Near syncope 02/25/2022 Social History Tobacco Use Types Packs/Day Years Used Date Smoking Tobacco: Never Smokeless Tobacco: Never Tobacco Cessation:Counseling Given: Not Answered Alcohol Use Standard Drinks/Week Comments Not Currently 0 (1 standard drink = 0.6 oz pur e alcohol) AUDIT-C Answer Date Recorded Frequency of Alcohol Consumption Not on file 02/25/2022 Q2: How many drinks containi ng alcohol do you have on a typical day when you are drinking? Patient does not drink Frequency of Binge Drinking Not on file 02/09 Hunger Vital Sign Answer Date Recorded Within the past 12 months, y ou worried that your food would run out before you got the money to buy more. Never true 02/27/20 Within the past 12 months, t he food you bought just didn't last and you didn't have money to get more. Never true 02/26/2022 Sex and Gender Information Value Date Recorded Sex Assigned at Not on file Gender Identity Not on file Sexual Orientation Not on file Last Filed Vital Signs Vital Sign Reading Time Taken Comments Blood Pressure 153/81 02/26/2022 7:48 AM PNEUMATIC JACKETER Pulse 56 02/26/2022 7:48 AM PNEUMATIC JACKETER Temperature 36.4 C (97.6 F) 02/26/2022 7:48 AM PNEUMATIC JACKETER Respiratory Rate 18 02/26/2022 5:23 AM PNEUMATIC JACKETER Oxygen Saturation 100% 02/26/2022 7:48 AM PNEUMATIC JACKETER Inhaled Oxygen Concentration - - Weight 75.8 kg (167 lb) 02/25/2022 11:47 AM PNEUMATIC JACKETER Height 167.6 cm (5' 6 ) 02/25/2022 11:47 AM PNEUMATIC JACKETER Body Mass Index 26.95 02/25/2022 11:47 AM PNEUMATIC JACKETER Procedures * PHOSPHORUS BLOOD(Performed 02/26/2022) Performed for Near syncope * MAGNESIUM BLOOD(Performed 02/26/2022) Performed for Near syncope * CBC W/O DIFFERENTIAL(Performed 02/26/2022) Performed for Near syncope * BASIC METABOLIC PANEL (CALCIUM TOTAL)(Performed 02/26/2022) Performed for Near syncope * CARDIAC EKG ORDER(Performed 02/26/2022) * XR CHEST 1VW PORTABLE(Performed 02/25/2022) Performed for Syncope and collapse * B-TYPE NATRIURETIC PEPTIDE(Performed 02/25/2022) * T4 FREE(Performed 02/25/2022) * TSH REFLEX FREE T4(Performed 02/25/2022) * TROPONIN I(Performed 02/25/2022) * COMPREHENSIVE METABOLIC PANEL(Performed 02/25/2022) * CBC W AUTO DIFFERENTIAL(Performed 02/25/2022) * HIV-1 HIV-2 ANTIBODY + HIV P24 AG PANEL(Performed 02/25/2022) * EKG 12-LEAD(Performed 02/25/2022) Performed for Syncope and collapse Results * CBC W/O DIFFERENTIAL (02/26/2022 1:07 PM PNEUMATIC JACKETER) WBC 5.6 3.5 - 10.5 10 3/uL 02/26/2022 1:44 PM [facility] RBC 3.96 3.80 - 5.20 10 6/uL 02/26/2022 1:44 PM [facility] Hemoglobin 12.8 12.0 - 15.6 g/dL 02/26/2022 1:44 PM [facility] Hematocrit 38.5 35.0 - 45.0 % 02/26/2022 1:44 PM [facility] MCV 97.2 80.7 - 98.3 fL 02/26/2022 1:44 PM [facility] MCH 32.3 26.7 - 34.0 pg 02/26/2022 1:44 PM [facility] MCHC 33.2 30.8 - 35.9 g/dL 02/26/2022 1:44 PM [facility] RDW-SD 47.4 36.0 - 50.0 fL 02/26/2022 1:44 PM [facility] RDW-CV 13.1 11.2 - 14.8 % 02/26/2022 1:44 PM [facility] Platelet Count 215 150 - 400 10 3/uL 02/26/2022 1:44 PM [facility] MPV 10.1 9.4 - 12.9 fL 02/26/2022 1:44 PM [facility] nRBC Absolute 0.00 0 10 3/uL 02/26/2022 1:44 PM [facility] nRBC Auto 0.0 0 /100 WBC 02/26/2022 1:44 PM [facility] Blood BLOOD SPECIMEN / Unknown Lab Venipuncture / Unknown 02/26/2022 1:07 PM PNEUMATIC JACKETER 02/26/2022 1:39 PM [facility] Dillon [facility] - HEMATOLOGY OR DERABLES [facility] [address] [place] [address], [facility] [phone] * (ABNORMAL) BASIC METABOLIC PANEL (CALCIUM TOTAL) (02/26/2022 1:07 PM PNEUMATIC JACKETER) BUN 19 7 - 26 mg/dL 02/26/2022 2:08 PM [facility] Creatinine 0.77 0.56 - 0.96 mg/dL 02/26/2022 2:08 PM [facility] Sodium 141 136 - 145 mmol/L 02/26/2022 2:08 PM [facility] Potassium 3.4(L) 3.5 - 4.5 mmol/L 02/26/2022 2:08 PM [facility] Chloride 109(H) 98 - 107 mmol/L 02/26/2022 2:08 PM [facility] CO2 25 22 - 29 mmol/L 02/26/2022 2:08 PM [facility] Glucose 105 70 - 115 mg/dL 02/26/2022 2:08 PM [facility] Calcium 9.0 8.4 - 10.2 mg/dL 02/26/2022 2:08 PM [facility] Anion Gap 10 8 - 18 02/26/2022 2:08 PM [facility] BUN/Creatinine Ratio 25(H) 7 - 23 02/26/2022 2:08 PM [facility] Osmolality Calculated 295 270 - 300 mOsm/kg 02/26/2022 2:08 PM [facility] eGFR by CKD-EPI >90 >=90 mL/min/1.7 3 m2 02/26/2022 2:08 PM [facility] Blood BLOOD SPECIMEN / Unknown Lab Venipuncture / Unknown 02/26/2022 1:07 PM PNEUMATIC JACKETER 02/26/2022 1:39 PM PNEUMATIC JACKETER Dillon [facility] - CHEMISTRY ORD ERABLES [facility] [address] [place] [address], [facility] [phone] * PHOSPHORUS BLOOD (02/26/2022 1:07 PM PNEUMATIC JACKETER) Pathologist [facility] Phosphorus 3.4 2.9 - 5.1 mg/dL 02/26/2022 2:08 PM PNEUMATIC JACKETER [facility] Blood BLOOD SPECIMEN / Unknown Lab Venipuncture / Unknown 02/26/2022 1:07 PM PNEUMATIC JACKETER 02/26/2022 1:39 PM PNEUMATIC JACKETER Dillon Tylerellen [facility] - CHEMISTRY ORD ERABLES Performing Organization Address City/[facility]/ZIP Co de Phone Number [address] [address], [place] [phone] * MAGNESIUM BLOOD (02/26/2022 1:07 PM PNEUMATIC JACKETER) Magnesium 1.6 1.6 - 2.6 mg/dL 02/26/2022 2:08 PM PNEUMATIC JACKETER [facility] Blood BLOOD SPECIMEN / Unknown Lab Venipuncture / Unknown 02/26/2022 1:07 PM PNEUMATIC JACKETER 02/26/2022 1:39 PM PNEUMATIC JACKETER Dillon Galicia Bharath [facility] - CHEMISTRY ORD ERABLES [address] [address], [place] [phone] * CARDIAC EKG ORDER (02/26/2022 10:34 AM PNEUMATIC JACKETER) Narrative 02/26/2022 10:34 AM PNEUMATIC JACKETER Ordered by an unspecified provider. Scanned Document CARDIAC SERVICES ORD ERABLES * XR CHEST 1VW PORTABLE (02/25/2022 7:51 PM PNEUMATIC JACKETER) Anatomical Region Laterality Modality Chest Radiographic Rebecca ging 02/26/2022 7:25 AM PNEUMATIC JACKETER Narrative 02/26/2022 12:56 PM PNEUMATIC JACKETER PROCEDURE: XR CHEST 1VW PORTABLE, DATE/TIME OF EXAM: 02/25/2022 7:52 PM, LOCATION [facility] INDICATION: R55: Syncope and collapse ADDITIONAL CLINICAL INFORMATION: Ordering Provider Reason For Exam: Syncope COMPARISON: None. FINDINGS/IMPRESSION: There is no focal consolidation, pleural effusion, or pneumothorax. The cardiomediastinal silhouette is normal. The visible bony thorax is intact. Report dictated by Max Mariscal DO (vice president safety). Adan Potter MD have personally reviewed and interpreted this examination/study. > Interpreting Provider: Adan Whitman MD on 02/26/2022 12:56 PM Procedure Note Shannan Whitman MD - 02/26/2022 PROCEDURE: XR CHEST 1VW PORTABLE, DATE/TIME OF EXAM: 02/25/2022 7:52PM, LOCATION [facility] INDICATION: R55: Syncope and collapse ADDITIONAL CLINICAL INFORMATION: Ordering Provider Reason For Exam: Syncope COMPARISON: None. FINDINGS/IMPRESSION: There is no focal consolidation, pleural effusion, or pneumothorax. The cardiomediastinal silhouette is normal. The visible bony thorax isintact. Report dictated by Max Mariscal DO (vice president safety). Adan Potter MD have personally reviewed and interpreted this examination/study. > Interpreting Provider: Adan Whitman MD on 02/26/2022 12:56 PM Domo Dugan MD DIAGNOSTIC IMAGING O RDERABLES * HIV-1 HIV-2 ANTIBODY + HIV P24 AG PANEL (02/25/2022 1:57 PM PNEUMATIC JACKETER) [facility] HIV Antigen/Antibod y 1 & 2 Non-reacti ve Non-react nancy 02/25/2022 2:57 PM PNEUMATIC JACKETER [facility] Comment:No Laboratory eviden ce of HIV infection. Blood BLOOD SPECIMEN / Unknown Venipuncture / Unknown 02/25/2022 1:57 PM PNEUMATIC JACKETER 02/25/2022 2:13 PM PNEUMATIC JACKETER Domo Dugan MD LAB - CHEMISTRY SAUMYA ADLER [facility] Organization Address City/State/ZIP Co de Phone Number [address] [address], [facility] [phone] * (ABNORMAL) TSH REFLEX FREE T4 (02/25/2022 1:57 PM PNEUMATIC JACKETER) [facility] TSH 7.461(H) 0.350 - 4.940 uIU/mL 02/25/2022 3:01 PM [facility] Blood BLOOD SPECIMEN / Unknown Venipuncture / Unknown 02/25/2022 1:57 PM PNEUMATIC JACKETER 02/25/2022 2:11 PM PNEUMATIC JACKETER Armando FRANKLIN-C LAB - CHEM ISTRY ORDERABLES [address] [address], [facility] [phone] * TROPONIN I (02/25/2022 1:57 PM PNEUMATIC JACKETER) Troponin I <0.010 <0.032 ng/mL 02/25/2022 2:45 PM [facility] Blood BLOOD SPECIMEN / Unknown Venipuncture / Unknown 02/25/2022 1:57 PM PNEUMATIC JACKETER 02/25/2022 2:11 PM PNEUMATIC JACKETER Armando FRANKLIN-C LAB - CHEM ISTRY ORDERABLES [address] [address], [facility] [phone] * (ABNORMAL) CBC W AUTO DIFFERENTIAL (02/25/2022 1:57 PM PNEUMATIC JACKETER) WBC 6.8 3.5 - 10.5 10 3/uL 02/25/2022 2:16 PM [facility] RBC 4.32 3.80 - 5.20 10 6/uL 02/25/2022 2:16 PM [facility] Hemoglobin 14.0 12.0 - 15.6 g/dL 02/25/2022 2:16 PM [facility] Hematocrit 41.5 35.0 - 45.0 % 02/25/2022 2:16 PM [facility] MCV 96.1 80.7 - 98.3 fL 02/25/2022 2:16 PM [facility] MCH 32.4 26.7 - 34.0 pg 02/25/2022 2:16 PM [facility] MCHC 33.7 30.8 - 35.9 g/dL 02/25/2022 2:16 PM [facility] RDW-SD 46.6 36.0 - 50.0 fL 02/25/2022 2:16 PM [facility] RDW-CV 13.1 11.2 - 14.8 % 02/25/2022 2:16 PM [facility] Platelet Count 272 150 - 400 10 3/uL 02/25/2022 2:16 PM [facility] MPV 9.8 9.4 - 12.9 fL 02/25/2022 2:16 PM [facility] nRBC Absolute 0.00 0 10 3/uL 02/25/2022 2:16 PM [facility] nRBC Auto 0.0 0 /100 WBC 02/25/2022 2:16 PM [facility] Neutrophils % 62.4 35.0 - 70.0 % 02/25/2022 2:16 PM [facility] Lymphocytes % 28.1 20.0 - 43.0 % 02/25/2022 2:16 PM [facility] Monocytes % 6.0 5.0 - 13.0 % 02/25/2022 2:16 PM [facility] Eosinophils % 1.9 0.0 - 6.0 % 02/25/2022 2:16 PM [facility] Basophil % 1.3 0.0 - 2.0 % 02/25/2022 2:16 PM [facility] Neutrophils Absolute 4.24 1.60 - 7.00 10 3/uL 02/25/2022 2:16 PM [facility] Lymphocyte Absolute 1.91 1.10 - 3.90 10 3/uL 02/25/2022 2:16 PM [facility] Monocytes Absolute 0.41 0.26 - 1.07 10 3/uL 02/25/2022 2:16 PM [facility] Eosinophils Absolute 0.13 0.00 - 0.47 10 3/uL 02/25/2022 2:16 PM [facility] Basophils Absolute 0.09(H) 0.00 - 0.08 10 3/uL 02/25/2022 2:16 PM [facility] Immature Granulocytes % 0.3 0.0 - 1.0 % 02/25/2022 2:16 PM PNEUMATIC JACKETER [facility] Immature Granulocytes Absolute 0.02 02/25/2022 2:16 PM PNEUMATIC JACKETER [facility] Blood BLOOD SPECIMEN / Unknown Venipuncture / Unknown 02/25/2022 1:57 PM PNEUMATIC JACKETER 02/25/2022 2:11 PM PNEUMATIC JACKETER Armando Gonzalez PA-C LAB - ILIA TOLOGY ORDERABLES Performing Organization Address [facility]/ZIP Co de Phone Number [address] [address], [facility] [phone] * B-TYPE NATRIURETIC PEPTIDE (02/25/2022 1:57 PM PNEUMATIC JACKETER) BNP 26 <100 pg/mL 02/25/2022 5:37 PM PNEUMATIC JACKETER [facility] Comment: A decision threshold of 100 pg/mL has been demonstrated to provide the maximal combination of sensitivity, specificity and predictive value for the diagnosis of congestive heart failure (CHF). Virtually all patients with no evidence of CHF have BNP values less than 100 pg/mL. A BNP value greater than 100 pg/mL is consistent with the diagnosis of CHF in the appropriate clinical setting. In a study of 693 patients (male and female) with diagnosed CHF, the following values were determined based on the NYHA functional classification system: NYHA Functional Class Mean Valule (pg/mL) % >100 pg/mL I 320 58.1 II 432 73.0 III 656 79.0 IV 1635 98.3 Blood BLOOD SPECIMEN / Unknown Venipuncture / Unknown 02/25/2022 1:57 PM PNEUMATIC JACKETER 02/25/2022 5:05 PM PNEUMATIC JACKETER Domo Dugan MD LAB - CHEMISTRY SAUMYA ADLER Performing Organization Address [facility]/ZIP Co de Phone Number [address] [address], [place] [phone] * (ABNORMAL) COMPREHENSIVE METABOLIC PANEL (02/25/2022 1:57 PM PNEUMATIC JACKETER) BUN 12 7 - 26 mg/dL 02/25/2022 2:43 PM [facility] Creatinine 0.69 0.56 - 0.96 mg/dL 02/25/2022 2:43 PM [facility] Sodium 139 136 - 145 mmol/L 02/25/2022 2:43 PM [facility] Potassium 4.2 3.5 - 4.5 mmol/L 02/25/2022 2:43 PM [facility] Chloride 106 98 - 107 mmol/L 02/25/2022 2:43 PM [facility] CO2 23 22 - 29 mmol/L 02/25/2022 2:43 PM [facility] Glucose 98 70 - 115 mg/dL 02/25/2022 2:43 PM [facility] Calcium 10.5(H) 8.4 - 10.2 mg/dL 02/25/2022 2:43 PM [facility] Protein Total 8.3 6.0 - 8.3 g/dL 02/25/2022 2:43 PM [facility] Albumin 4.7 3.4 - 5.0 g/dL 02/25/2022 2:43 PM [facility] Bilirubin Total 0.6 0.2 - 1.2 mg/dL 02/25/2022 2:43 PM [facility] Alkaline Phosphatase 86 40 - 150 U/L 02/25/2022 2:43 PM [facility] ALT 27 5 - 55 U/L 02/25/2022 2:43 PM [facility] AST 28 5 - 34 U/L 02/25/2022 2:43 PM [facility] Anion Gap 14 8 - 18 02/25/2022 2:43 PM [facility] BUN/Creatinine Ratio 17 7 - 23 02/25/2022 2:43 PM [facility] Osmolality Calculated 288 270 - 300 mOsm/kg 02/25/2022 2:43 PM [facility] Albumin/Globulin Ratio 1.3 1.1 - 2.3 02/25/2022 2:43 PM [facility] eGFR by CKD-EPI >90 >=90 mL/min/1.7 3 m2 02/25/2022 2:43 PM [facility] Blood BLOOD SPECIMEN / Unknown Venipuncture / Unknown 02/25/2022 1:57 PM PNEUMATIC JACKETER 02/25/2022 2:11 PM PNEUMATIC JACKETER Armando Keri [facility] LAB - CHEM ISTRY ORDERABLES Performing Organization Address City/[facility]/ZIP Co de Phone Number [address] [address], [facility] [phone] * T4 FREE (02/25/2022 1:57 PM PNEUMATIC JACKETER) T4 Free 0.8 0.7 - 1.5 ng/dL 02/25/2022 3:33 PM PNEUMATIC JACKETER [facility] Blood BLOOD SPECIMEN / Unknown Venipuncture / Unknown 02/25/2022 1:57 PM PNEUMATIC JACKETER 02/25/2022 2:11 PM PNEUMATIC JACKETER Armando Gonzalez PA-C LAB - CHEM ISTRY ORDERABLES Performing Organization Address [facility] Co de Phone Number [address] [address], [facility] [phone] * EKG 12-LEAD (02/25/2022 12:01 PM PNEUMATIC JACKETER) Ventricular Rate 52 BPM [facility] MUSE Atrial Rate 52 BPM [facility] MUSE P-R Interval 138 ms [facility] MUSE QRS Duration ms 74 ms [facility] MUSE Q-T Interval ms 404 ms [facility] MUSE QTC Calculation (Bezet) 375 ms [facility] MUSE Calculated P [place] 68 degrees SL MUSE Calculated R [place] 51 degrees [facility] MUSE Calculated T [place] 58 degrees [facility] MUSE Interpretation EKG SINUS BRADYCARDIA WITH PREMATURE ATRIAL COMPLEXES OTHERWISE NORMAL ECG NO PREVIOUS ECGS AVAILABLE Confirmed by FRANKY MORALES MD ([id number]) on 02/25/2022 12:48:57 PM [facility] MUSE 02/25/2022 12:0 1 PM PNEUMATIC JACKETER 02/25/2022 12:48 PM PNEUMATIC JACKETER Domo Dugan MD ECG ORDERABLES Performing Organization Address City/[facility] Co de Phone Number [facility] Care Teams Cashier Parking Lot Relationship Specialty Start Date End Date Boby Odonnell MD PCP - General 04/01/22
--- OUTSIDE RECORDS SUMMARY | 2024-06-20 08:33 | XMS_ITS | Referral Summary ---
Author Organization [facility] Address [address] [place] [address] Care Team Providers Care Special Assets Officer Name Role Phone Boby Odonnell MD Primary Care Provider Unavailabl e Source Comments [facility],non-owned Affiliates and Associated Physician Practices is amultiple site organization consisting of ambulatory clinics and hospital sitesin [place], [place], [place] and [place]. This disclosure is being madepursuant to the Care Everywhere program and may not contain all information available regarding this patient. Last updated 17.[employer] Allergies No known active allergies Medications * Be aware that medications may not be up to date on this document. Alwaysverify current medications with the patient. Medication Sig Dispensed Refills Start Date End Date Status levothyroxine (Synthroid) 125 MCG tablet Take 1 (one) tablet by mouth daily before breakfast 02/26/2022 Active Active Problems Problem Noted Date Diagnosed Date [...] money to buy more. Never true 02/27/20 22 Within the past 12 months, t he food you bought just didn't last and you didn't have money to get more. Never true 02/26/2022 Sex and Gender Information Value Date Recorded Sex Assigned at Not on file Gender Identity Not on file Sexual Orientation Not on file Last Filed Vital Signs Vital Sign Reading Time Taken Comments Blood Pressure 153/81 02/26/2022 7:48 AM [employer] Pulse 56 02/26/2022 7:48 AM [employer]EWATER [employer] IN[employer]CTOR Temperature 36.4 C (97.6 F) 02/26/2022 7:48 AM [employer]ATER [employer]AT[employer] IN[employer]CTOR Respiratory Rate 18 02/26/2022 5:23 AM [employer]EWATER [employer]AT[employer] IN[employer]CTOR Oxygen Saturation 100% 02/26/2022 7:48 AM [employer]AT[employer] IN[employer]CTOR Inhaled Oxygen Concentration - - Weight 75.8 kg (167 lb) 02/25/2022 11:47 AM [employer]ATER [employer]AT[employer] IN[employer]CTOR Height 167.6 cm (5' 6 ) 02/25/2022 11:47 AM [employer] IN[employer]CTOR Body Mass Index 26.95 02/25/2022 11:47 AM W[employer] IN[employer]CTOR Plan of Treatment Not on file Procedures Procedure Name Priority Date/Time Associated Diagnosis Comments HIV-1 HIV-2 ANTIBODY + HIV P24 AG PANEL STAT 02/25/2022 1:57 PM [employer] from Last 3 Months or Most Recently Relevant to Health Maintenance Results * HIV-1 HIV-2 ANTIBODY + HIV P24 AG PANEL (02/25/2022 1:57 PM [employer]ATER [employer] IN[employer]CTOR) HIV Antigen/Antibod y 1 & 2 Non-reacti ve Non-react nancy 02/25/2022 2:57 PM [employer]EWATER [employer] INSTRUCTOR [facility] Comment:No Laboratory eviden ce of HIV infection. Blood BLOOD SPECIMEN / Unknown Venipuncture / Unknown 02/25/2022 1:57 PM [employer] 02/25/2022 2:13 PM [employer] Domo Dugan MD LAB - CHEMISTRY SAUMYA ADLER [facility] Organization Address City/State/ZIP Co de Phone Number [facility] [address] [place] [address], [facility] [phone] from Last 3 Months or Most Recently Relevant to Health Maintenance Advance Directives * Full Code (Latest Code Status on File) Date Activated Date Inactivated Comments 02/25/2022 8:02 PM 02/26/2022 5:17 PM Care Teams Special Assets Officer Relationship Specialty Start Date End Date Boby Odonnell MD PCP - General 04/01/22
--- OUTSIDE RECORDS SUMMARY | 2024-06-20 08:33 | XMS_ITS | Clinical Summary ---
Author Organization [facility] Address [address] [place] [address] Care Team Providers Care Depositing Machine Operator Name Role Phone Greg Cleaning MD Primary Care Provider [phone] Allergies No known active allergies Medications levothyroxine (SYNTHROID) 125 mcg tabletIndicati ons:hypothyroi dism Take 125 mcg by mouth daily 0 Active ibuprofen (ADVIL,MOTRIN) 600 mg tablet Take 1 tablet (600 mg total) by mouth 3 (three) times a day Take with food p.r.n. pain and swelling. Collaborating physician Timmy Walker MD. 20 tablet 0 Active albuterol HFA (PROVENTIL HFA,VENTOLIN HFA,PROAIR HFA) 90 mcg/actuation inhaler Inhale 2 puffs every 6 (six) hours as needed for wheezing Active polycarbophil (FIBERCON) 625 mg tablet Take 625 mg by mouth daily Active Active Problems Problem Noted Date Diagnosed Date Sprain of anterior talofibular ligament of left ankle 10/02/2019 Foot sprain, left, initial encounter 10/02/2019 Surgical History Surgery Date Site/Laterality Comments HYSTERECTOMY APPENDECTOMY 04/11/2020 - 04/10/2021 Medical History Medical History Date Comments Anxiety Depression Thyroid disease Full dentures Hallux valgus with bunions of right foot PONV (postoperative nausea and vomiting) Asthma Hypothyroidism Family History Medical History Relation Name Comments No Known Problems Brother No Known Problems Daughter No Known Problems Father No Known Problems Mother No Known Problems Sister No Known Problems Son Relation Name Status Comments Brother Daughter Father Mother Sister Son Social History Tobacco Use Types Packs/Day Years Used Date Smoking Tobacco: Some Days Cigarettes Smokeless Tobacco: Never Comments:social smoker when drinking, never buys a pack Alcohol Use Standard Drinks/Week Comments Yes 0 (1 standard drink = 0.6 oz pur e alcohol) social AUDIT-C Answer Date Recorded Q1: How often do you have a drink containing alc ohol? 2-4 times a month 04/09/2021 Q2: How many drinks containi ng alcohol do you have on a typical day when you are drinking? 3 or 4 04/09/2021 Q3: How often do you have si x or more drinks on one occasion? 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 Not on file Not on file Obstetrics History Last Filed Vital Signs Vital Sign Reading Time Taken Comments Blood Pressure 131/80 04/09/2021 5:30 PM OPERATING ROOM SPECIALIST Pulse 84 04/09/2021 5:30 PM OPERATING ROOM SPECIALIST Temperature 36.1 C (97 F) 04/09/2021 5:00 PM OPERATING ROOM SPECIALIST Respiratory Rate 16 04/09/2021 5:30 PM OPERATING ROOM SPECIALIST Oxygen Saturation 91% 04/09/2021 5:30 PM OPERATING ROOM SPECIALIST Inhaled Oxygen Concentration - - Weight 78 kg (172 lb) 04/09/2021 12:44 PM OPERATING ROOM SPECIALIST Height 167.6 cm (5' 6 ) 04/09/2021 12:45 PM OPERATING ROOM SPECIALIST Body Mass Index 27.76 04/09/2021 12:44 PM OPERATING ROOM SPECIALIST Plan of Treatment Health Maintenance Due Date Last Done Comments Breast Cancer Screening-Mammogram 1972 Colon Cancer Screening-Colonoscopy 1972 Depression Screening 1972 Hepatitis C Screening 1972 DTaP/Tdap/Td Vaccine (1 - Tdap) 1983 Hepatitis B Screening 1990 Regular Well Visit/Exam 18-64 1990 Pneumococcal vaccine <65 (1 of 2 - PCV) 1991 Zoster Vaccine (1 of 2) 2022 Influenza Vaccine (#1) 2023 Medical Devices Implanted Type Area Twisting Press Operator Device Identifier Shelf Expiration Date Model / Serial / Lot [employer] [id number] Asnis 3mm 17mm 4mm Self Cut Cannulated Color Coded Low Profile - [id number] Implanted:Qty: 1 on 04/09/2021 by Robert Tran DPM at [facility] [id number] / / Insurance [facility] [employer] COMPENSATION GENERIC , [address] [address] Care Teams Depositing Machine Operator Relationship Specialty Start Date End Date Greg Cleaning MD PCP - General Emergency Medicine 04/09/21
--- OUTSIDE RECORDS SUMMARY | 2024-06-20 08:33 | XMS_ITS | Clinical Summary ---
Author Organization [employer] [facility] Address [address] [facility] [place] [address] Care Team Providers Care Teacher Associate Name Role Phone Boby Odonnell MD Primary Care Provider Unavailabl e Source Comments [facility],non-owned Affiliates and Associated Physician Practices is amultiple site organization consisting of ambulatory clinics and hospital sitesin [place], [place], [place] and [place]. This disclosure is being madepursuant to the Care Everywhere program and may not contain all information available regarding this patient. Last updated 17.[employer] Allergies No known active allergies Medications * [...] Comments Blood Pressure 153/81 02/26/2022 7:48 AM VEIN ACCESS TECHNICIAN Pulse 56 02/26/2022 7:48 AM VEIN ACCESS TECHNICIAN Temperature 36.4 C (97.6 F) 02/26/2022 7:48 AM VEIN ACCESS TECHNICIAN Respiratory Rate 18 02/26/2022 5:23 AM VEIN ACCESS TECHNICIAN Oxygen Saturation 100% 02/26/2022 7:48 AM VEIN ACCESS TECHNICIAN Inhaled Oxygen Concentration - - Weight 75.8 kg (167 lb) 02/25/2022 11:47 AM VEIN ACCESS TECHNICIAN Height 167.6 cm (5' 6 ) 02/25/2022 11:47 AM VEIN ACCESS TECHNICIAN Body Mass Index 26.95 02/25/2022 11:47 AM VEIN ACCESS TECHNICIAN Plan of Treatment Health Maintenance Due Date Last Done Comments COLOGUARD (AGES 45-75) - COL ON CA SCREENING 1972 COLON MONITORING 1972 COLONOSCOPY - COLON CA SCREENING 1972 CT COLONOGRAPHY - COLON CA SCREENING 1972 Colorectal Cancer Screening 1972 FIT - COLON CA SCREENING 1972 FLEX SIG - COLON CA SCREENING 1972 LIPID TESTING 1972 MAMMOGRAM 1972 PAP SMEAR 1972 HEPATITIS C SCREENING 05/07/1990 DTAP/TDAP/TD VACCINES (1 - Tdap) 1991 HEPATITIS B VACCINE (1 of 3 - 19+ 3-dose series) 1991 PNEUMOCOCCAL VACCINE 50+ (1 of 1 - PCV) 2022 ZOSTER VACCINE (1 of 2) 2022 COVID-19 VACCINE ( - 2023-2 5 season) 2023 INFLUENZA VACCINE (#1) 2023 DEPRESSION SCREENING 04/11/2024 HIV SCREENING Completed 02/25/2022 HIB VACCINE Aged Out No longer eligi ble based on patient's age to complete this topic HPV VACCINE Aged Out No longer eligi ble based on patient's age to complete this topic MENINGOCOCCAL (Group B) VACC INE SHARED DECISION-MAKING Aged Out No longer eligibl e based on patient's age to complete this topic MENINGOCOCCAL GROUPS A/C/Y/W VACCINE Aged Out No longer eligible b ased on patient's age to complete this topic PNEUMOCOCCAL VACCINE Aged Out No long er eligible based on patient's age to complete this topic Procedures Procedure Name Priority Date/Time Associated Diagnosis Comments HIV-1 HIV-2 ANTIBODY + HIV P24 AG PANEL STAT 02/25/2022 1:57 PM VEIN ACCESS TECHNICIAN from Last 3 Months or Most Recently Relevant to Health Maintenance Results * HIV-1 HIV-2 ANTIBODY + HIV P24 AG PANEL (02/25/2022 1:57 PM VEIN ACCESS TECHNICIAN) HIV Antigen/Antibod y 1 & 2 Non-reacti ve Non-react nancy 02/25/2022 2:57 PM VEIN ACCESS TECHNICIAN [facility] Comment:No Laboratory eviden ce of HIV infection. Blood BLOOD SPECIMEN / Unknown Venipuncture / Unknown 02/25/2022 1:57 PM VEIN ACCESS TECHNICIAN 02/25/2022 2:13 PM VEIN ACCESS TECHNICIAN Domo Dugan MD LAB - CHEMISTRY SAUMYA Gottlieb Organization Address City/State/ZIP Co de Phone Number [facility] [address] [place] [address], [facility] [phone] from Last 3 Months or Most Recently Relevant to Health Maintenance Advance Directives * Full Code (Latest Code Status on File) Date Activated Date Inactivated Comments 02/25/2022 8:02 PM 02/26/2022 5:17 PM Care Teams Teacher Associate Relationship Specialty Start Date End Date Boby Odonnell MD PCP - General 04/01/22
--- OUTSIDE RECORDS SUMMARY | 2024-06-20 08:33 | XMS_ITS | Referral Summary ---
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 Not on file Not on file Last Filed Vital Signs Vital Sign Reading Time Taken Comments Blood Pressure 131/80 04/09/2021 5:30 PM VICE PRESIDENT OF SOFTWARE ENGINEERING Pulse 84 04/09/2021 5:30 PM VICE PRESIDENT OF SOFTWARE ENGINEERING Temperature 36.1 C (97 F) 04/09/2021 5:00 PM VICE PRESIDENT OF SOFTWARE ENGINEERING Respiratory Rate 16 04/09/2021 5:30 PM VICE PRESIDENT OF SOFTWARE ENGINEERING Oxygen Saturation 91% 04/09/2021 5:30 PM VICE PRESIDENT OF SOFTWARE ENGINEERING Inhaled Oxygen Concentration - - Weight 78 kg (172 lb) 04/09/2021 12:44 PM VICE PRESIDENT OF SOFTWARE ENGINEERING Height 167.6 cm (5' 6 ) 04/09/2021 12:45 PM VICE PRESIDENT OF SOFTWARE ENGINEERING Body Mass Index 27.76 04/09/2021 12:44 PM VICE PRESIDENT OF SOFTWARE ENGINEERING Plan of Treatment Not on file Medical Devices Implanted Type Area Repairer Cylinder Heads Device Identifier Shelf Expiration Date Model / Serial / Lot [employer] [id number] Asnis 3mm 17mm 4mm Self Cut Cannulated Color Coded Low Profile - [id number] Implanted:Qty: 1 on 04/09/2021 by Robert Tran DPM at [facility] [employer] [id number] / / [place] [address] [facility] H[facility]/PPO Address: [address] [address] [place] [address] [employer]ENS[employer] GENER[employer] Care Teams Office Assistance Relationship Specialty Start Date End Date Greg Cleaning MD PCP - General Emergency Medicine 04/09/21
== END 2024-06-20 08:11 | disposition home or self-care (01) ==
LOC: ANHIMG 08:17
PROVIDERS: PCP Family Medicine; Visit Provider Internal Medicine Endocrinology, Diabetes & Metabolism
DX: Z12.31 Encounter for screening mammogram for malignant neoplasm of breast (principal)
CPT/HCPCS: 77063; 77067